=== PATIENT | female | born 1950 | race Caucasian/White ===

== ENCOUNTER → 2018-07-07 | Outpatient (CLI) | payer OTHER ==
[~2018-07-07] MED LIST: ALPR0.25 PO; ATOR10TA82 PO; CALC600T37 PO; CMD/2 PO; FSMD/70 PO; SERT-234 PO; TOPI100T20 PO; VNTHFA/IN INH; WARF1TAB6 PO
--- NOTE | 2018-07-07 13:26 | DIAGNOSTIC IMAGING REPORT ---
CHEST 2 VIEWS ROUTINE CLINICAL HISTORY: 67 years-old Female presenting with preoperative assessment. TECHNIQUE: PA and lateral views of the chest were obtained. COMPARISON: None. FINDINGS: Right subclavian pacer with leads in the right atrium and right ventricular apex. Atherosclerosis of aortic arch. Cardiac silhouette mildly enlarged. Lungs and pleural spaces clear. Osseous structures normal. Cholecystectomy clips noted. IMPRESSION: 1. Mild cardiomegaly. No other convincing evidence of acute cardiopulmonary disease. Electronically signed by: Pablito Nevarez M.D. 07/07/2018 1:25 PM Dictated Date/Time: 07/07/2018 1:23 PM
[2018-07-07 14:38] LABS: BASO % 0.3 %; BASO ABS # 0.02 K/uL (0-0.2); EOS % 4.4 %; EOS ABS # 0.28 K/uL (0-0.5); HEMATOCRIT 38.9 % (37-47); HEMOGLOBIN 12.4 g/dL (12.0-16.0); IG# 0.01 K/uL (0.00-0.02); LYMPH % 29.2 %; LYMPH ABS # 1.85 K/uL (1.2-3.4); MEAN CELL VOLUME 88.8 fL (80-100); MEAN CORPUSCULAR HEMOGLOBIN 28.3 pg (25-34); MEAN CORPUSCULAR HGB CONC 31.9 g/dl (32-36); MONO % 8.4 %; MONO ABS # 0.53 K/uL (0.11-0.59); NEUT % 57.5 %; NEUT ABS # 3.65 K/uL (1.4-6.5); PLATELET COUNT 218 K/uL (130-400); RED CELL DISTRIBUTION WIDTH CV 14.7 % (11.5-14.5); RED CELL DISTRIBUTION WIDTH SD 48.2 fL (36.4-46.3); WHITE BLOOD COUNT 6.34 K/uL (4.8-10.8)
[2018-07-07 14:39] LABS: HEMOGLOBIN A1C 5.8 % (4.5-5.6)
[2018-07-07 14:47] LABS: INR 2.4 (0.9-1.1); PTT PATIENT 40.6 SECONDS (21.0-31.0)
[2018-07-07 14:59] LABS: ALBUMIN 3.4 gm/dl (3.4-5.0); BLOOD UREA NITROGEN 20 mg/dl (7-18); CALCIUM 8.6 mg/dl (8.5-10.1); CARBON DIOXIDE 24 mmol/L (21-32); CREATININE 0.86 mg/dl (0.60-1.20); GLUCOSE 96 mg/dl (70-99); SODIUM 139 mmol/L (136-145)
== END | disposition home or self-care (01) ==
LOC: C.CPL 13:41
DX: Z01.810 Encounter for preprocedural cardiovascular examination (principal); Z01.811 Encounter for preprocedural respiratory examination; Z01.812 Encounter for preprocedural laboratory examination

== ENCOUNTER 2022-04-28 16:32 | Inpatient (IN) ==
--- NOTE | 2022-04-28 16:52 | Emergency Department Note ---
Impression & Plan Deep vein thrombosis, Cellulitis ED Provider Note NAME: DONNIE LUNDBERG AGE: 71 SEX: F : 1950 ARRIVES VIA: Walk-In INFORMANT: Patient, ED PROVIDER(S): Jamie Thomas MD Chief Complaint: Leg pain and redness HPI: Patient presents due to concern for left leg swelling and redness. The patient does have a remote history of DVT in the past does not know whether or not this feels similar. The patient denies any trauma the patient is on long- term blood thinning medications. The patient did notice a spot of redness over the left rehman last evening but it is progressed today to where it involves at least half of the leg between the knee and the ankle. The patient does complain of mild discomfort. The patient is not diabetic. Patient does not think that she suffered any trauma. The patient does state that it is slightly sharp and burning to touch. Patient denies any fevers chills or chest pains. Patient does have chronic shortness of breath. No cough or chest pain. The patient has had nausea but no vomiting. The patient did not take anything for symptoms at home and presented here for further evaluation treatment as she was concerned about the possibility of a blood clot or skin infection. ROS: See HPI for pertinent positives and negatives. A total of 10 systems were reviewed and otherwise negative. Past medical history: See below Surgical history: See below Social history: See below Physical Exam: GENERAL: NAD, wearing glasses, wearing a mask, non-toxic. EYE EXAM: Normal conjunctiva. PERRL, no anisocoria and EOM's grossly intact w/o pain. OROPHARYNX: Moist mucus membranes. Grossly normal dentition. NECK: Supple, no nuchal rigidity, no adenopathy, non-tender. No signs of meningismus. LUNGS: Clear to auscultation. Normal chest wall mechanics. HEART: NSR, no MRG. ABDOMEN: Abdomen soft, non-tender, normo-active bowel sounds, no masses, no rebound or guarding. BACK: No CVA TTP. SKIN: No rashes and no bruising. UPPER EXTREMITIES: Upper extremities are grossly normal. LOWER EXTREMITIES: Mild left greater than right lower extremity swelling with redness from the mid rehman to the ankle, blanching erythema, compartments are soft no crepitus, neurovascular intact distally with good DP pulse and sensation. NEURO EXAM: A&O x3, cranial nerves II-XII grossly intact, normal speech, moves all 4 extremities on command w/o issue. Differential diagnoses: DVT, musculoskeletal, infection, joint effusion, trauma, lymphedema, idiopathic, CHF, as well as other pathologies. Course: Patient was seen and evaluated the bedside. Full history physical exam was performed. Imaging Studies: See Below Cardiac monitoring: An order was placed for continuous cardiac monitoring. The monitor shows a rate of 78 with sinus rhythm. MDM: Patient was seen due to concern for leg redness. Blood work was obtained. The patient was treated with an initial dose of Rocephin and a DVT ultrasound was ordered. Blood work does show a white count of 18 with virtually normal hemoglobin but slight anemia with a hemoglobin 11.7. Platelet count is unremarkable. Patient's INR is therapeutic at 2.2. Kidney function unremarkable. Patient's DVT ultrasound is positive. Given the patient's associated cellulitis and the fact that the patient is therapeutic on her Coumadin with associated acute DVT do think the patient would benefit from admission at this time. I did speak with the on-call hospitalist Dr. Cuello and the patient was admitted to the medicine service. Patient was ordered a small amount of pain medication for her leg discomfort. Past Med/Surg History Medical History Anemia Anxiety Arrhythmia TACHYCARDIA Asthma stable Chronic back pain Deep vein thrombosis 2016 Depression Encounter for pre-operative examination n/a Endometriosis Hearing deficit History of deep vein thrombosis History of pulmonary embolism Hyperlipidemia Memory difficulties Migraine without aura, not intractable, without status migrainosus Osteoarthritis Peptic ulcer disease AT AGE 17 Psychogenic nonepileptic seizure Pulmonary embolism 2016 Seizure Per neurology 01/2018, episodes questionable seizure versus pseudoseizure activity (negative EEG). TIA (transient ischemic attack) Transient ischemic attack (TIA) GREATER THAN 1 YEAR AGO Uterine cancer Surgical History History of adenoidectomy History of cholecystectomy History of ear surgery RIGHT History of herniorrhaphy UMBILICAL History of tonsillectomy History of tooth extraction History of total abdominal hysterectomy and bilateral salpingo-oophorectomy Pacemaker SECONDARY TO SSS; PLACED 1993; REPLACEMENT 1999 Status post right knee replacement Social History Smoking Status: Never smoker Hx Alcohol Use: No Hx Substance Use: No Preferred Language: Citizen Of [place] Communication Ability: Effective Visual Impairment: No Limitations Beliefs That Will Affect Care: Mosque Mosque Beliefs: CONGREGATIONAL marital status: / Current Living Situation: Alone Feels Safe at Home: Yes Assistive Devices: Glasses, Hearing Aid - Left and Walker Allergies Allergies Allergy/AdvReac Type Severity Reaction Status Date / Time No Known Allergies Allergy Verified 04/28/22 19:31 Home Meds Home Medications Medication Instructions Recorded Confirmed sertraline 100 mg tablet (Zoloft) 200 mg PO QAM #0 tab 07/09/19 04/28/22 atorvastatin 10 mg tablet 10 mg PO QAM 07/14/19 04/28/22 levothyroxine 75 mcg capsule 75 mcg PO DAILY 02/28/21 04/28/22 warfarin 2 mg tablet See Rx Instructions PO UD tab 04/11/22 04/28/22 albuterol sulfate 90 mcg/actuation 2 puff INHALATION Q4 PRN 04/28/22 04/28/22 aerosol inhaler (Ventolin HFA) calcium carbonate 600 mg-vitamin 1 tab PO DAILY 04/28/22 04/28/22 D3 10 mcg (400 unit) tablet (Calcium 600 + D(3)) multivitamin-ferrous 1 tab PO DAILY 04/28/22 04/28/22 fumarate-folic acid 18 mg-400 mcg tablet (Complete Multivitamin-Multimineral) Previous Rx's Medication Instructions Recorded divalproex 250 mg tablet,extended 250 mg PO DAILY #30 tab 02/20/22 release 24 hr sumatriptan succinate 25 mg tablet 25 mg PO .COMPLEX PRN #9 tab 02/20/22 Results & Data (ED) Vital Signs Vital Signs - 24 hr 04/28/22 16:41 04/28/22 17:05 04/28/22 18:33 Temperature 36.7 C Temperature Source Temporal Artery Scan Pulse Rate 84 Pulse Rate [Right Finger] 80 Pulse Rhythm [Right Finger] Regular Pulse Strength [Right Finger] Normal Respiratory Rate 18 18 Respiratory Effort / Characteristics Non-Labored Respiratory Depth Normal Respiratory Pattern Regular Blood Pressure 155/77 H Blood Pressure [Right Arm] 148/80 H Blood Pressure Mean 103 Blood Pressure Mean [Right Arm] 102 Blood Pressure Position Sitting Blood Pressure Position [Right Arm] Lying Pulse Oximetry 96 92 Oxygen Delivery Method Room Air Room Air Room Air Sepsis Recent Fever Within 48 Hours No Sepsis New/Unexplained Change in Mental Status No Sepsis Action Taken by Nursing No Action Required Home Medications Current Medication List: was personally reviewed by me Laboratory Data Attestation: I reviewed the patient's lab results. Result diagrams: 04/28/22 17:15 04/28/22 17:15 Lab Results 04/28/22 04/28/22 04/28/22 Range/Units 17:15 17:15 17:15 WBC 18.79 H (4.8-10.8) K/uL RBC 4.45 (4.2-5.4) M/uL Hgb 11.7 L (12.0-16.0) g/dL Hct 36.7 L (37-47) % MCV 82.5 (80-100) fL MCH 26.3 (25-34) pg MCHC 31.9 L (32-36) g/dL RDW Std Deviation 49.7 H (36.4-46.3) fL RDW Coeff of Nick 16.3 H (11.5-14.5) % Plt Count 233 (130-400) K/uL MPV 10.7 H (7.4-10.4) fL Immature Gran % (Auto) 0.4 % Neut % (Auto) 90.1 % Lymph % (Auto) 3.7 % [place] % (Auto) 5.6 % Eos % (Auto) 0.1 % Baso % (Auto) 0.1 % Neut # (Auto) 16.93 H (1.4-6.5) K/uL Lymph # (Auto) 0.70 L (1.2-3.4) K/uL [place] # (Auto) 1.06 H (0.11-0.59) K/uL Eos # (Auto) 0.01 (0-0.5) K/uL Baso # (Auto) 0.02 (0-0.2) K/uL Immature Gran # (Auto) 0.07 H (0.00-0.02) K/uL ESR (0-30) mm/hr PT Cancelled INR Cancelled Sodium 134 L (136-145) mmol/L Potassium 4.3 (3.5-5.1) mmol/L Chloride 98 (98-107) mmol/L Carbon Dioxide 29 (21-32) mmol/L Anion Gap 7 (3-11) BUN 17 (6-23) mg/dl Creatinine 0.85 (0.6-1.2) mg/dl Est Cr Clr Drug Dosing 66.7 ml/min Est GFR ( Amer) 81.0 ml/min Est GFR (Non-Af Amer) 69.9 ml/min BUN/Creatinine Ratio 20.0 (10-20) Glucose 119 H (70-99(Fasting)) mg/dl Calcium 9.6 (8.5-10.1) mg/dl Total Bilirubin 0.8 (0.2-1.0) mg/dl AST 20 (13-39) U/L ALT 12 (7-52) U/L Alkaline Phosphatase 75 (34-104) U/L C-Reactive Protein (0-0.5) mg/dl Total Protein 7.9 (6.0-8.3) gm/dl Albumin 4.2 (3.4-5.0) gm/dl Globulin 3.7 (2.5-4.0) gm/dl Albumin/Globulin Ratio 1.1 (0.9-2) Procalcitonin (0-0.5) ng/ml SARS-CoV-2, RNA, NAAT (NEGATIVE) 04/28/22 04/28/22 04/28/22 Range/Units 17:15 18:01 18:02 WBC (4.8-10.8) K/uL RBC (4.2-5.4) M/uL Hgb (12.0-16.0) g/dL Hct (37-47) % MCV (80-100) fL MCH (25-34) pg MCHC (32-36) g/dL RDW Std Deviation (36.4-46.3) fL RDW Coeff of Nick (11.5-14.5) % Plt Count (130-400) K/uL MPV (7.4-10.4) fL Immature Gran % (Auto) % Neut % (Auto) % Lymph % (Auto) % [place] % (Auto) % Eos % (Auto) % Baso % (Auto) % Neut # (Auto) (1.4-6.5) K/uL Lymph # (Auto) (1.2-3.4) K/uL [place] # (Auto) (0.11-0.59) K/uL Eos # (Auto) (0-0.5) K/uL Baso # (Auto) (0-0.2) K/uL Immature Gran # (Auto) (0.00-0.02) K/uL ESR 70 H (0-30) mm/hr PT 22.1 H INR 2.2 H Sodium (136-145) mmol/L Potassium (3.5-5.1) mmol/L Chloride (98-107) mmol/L Carbon Dioxide (21-32) mmol/L Anion Gap (3-11) BUN (6-23) mg/dl Creatinine (0.6-1.2) mg/dl Est Cr Clr Drug Dosing ml/min Est GFR ( Amer) ml/min Est GFR (Non-Af Amer) ml/min BUN/Creatinine Ratio (10-20) Glucose (70-99(Fasting)) mg/dl Calcium (8.5-10.1) mg/dl Total Bilirubin (0.2-1.0) mg/dl AST (13-39) U/L ALT (7-52) U/L Alkaline Phosphatase (34-104) U/L C-Reactive Protein 4.48 H (0-0.5) mg/dl Total Protein (6.0-8.3) gm/dl Albumin (3.4-5.0) gm/dl Globulin (2.5-4.0) gm/dl Albumin/Globulin Ratio (0.9-2) Procalcitonin (0-0.5) ng/ml SARS-CoV-2, RNA, NAAT (NEGATIVE) 04/28/22 04/28/22 Range/Units 18:02 20:30 WBC (4.8-10.8) K/uL RBC (4.2-5.4) M/uL Hgb (12.0-16.0) g/dL Hct (37-47) % MCV (80-100) fL MCH (25-34) pg MCHC (32-36) g/dL RDW Std Deviation (36.4-46.3) fL RDW Coeff of Nick (11.5-14.5) % Plt Count (130-400) K/uL MPV (7.4-10.4) fL Immature Gran % (Auto) % Neut % (Auto) % Lymph % (Auto) % [place] % (Auto) % Eos % (Auto) % Baso % (Auto) % Neut # (Auto) (1.4-6.5) K/uL Lymph # (Auto) (1.2-3.4) K/uL [place] # (Auto) (0.11-0.59) K/uL Eos # (Auto) (0-0.5) K/uL Baso # (Auto) (0-0.2) K/uL Immature Gran # (Auto) (0.00-0.02) K/uL ESR (0-30) mm/hr PT INR Sodium (136-145) mmol/L Potassium (3.5-5.1) mmol/L Chloride (98-107) mmol/L Carbon Dioxide (21-32) mmol/L Anion Gap (3-11) BUN (6-23) mg/dl Creatinine (0.6-1.2) mg/dl Est Cr Clr Drug Dosing ml/min Est GFR ( Amer) ml/min Est GFR (Non-Af Amer) ml/min BUN/Creatinine Ratio (10-20) Glucose (70-99(Fasting)) mg/dl Calcium (8.5-10.1) mg/dl Total Bilirubin (0.2-1.0) mg/dl AST (13-39) U/L ALT (7-52) U/L Alkaline Phosphatase (34-104) U/L C-Reactive Protein (0-0.5) mg/dl Total Protein (6.0-8.3) gm/dl Albumin (3.4-5.0) gm/dl Globulin (2.5-4.0) gm/dl Albumin/Globulin Ratio (0.9-2) Procalcitonin < 0.05 (0-0.5) ng/ml SARS-CoV-2, RNA, NAAT NEGATIVE (NEGATIVE) Administered Medications Discontinued Medications Ceftriaxone Sodium (Rocephin) 2,000 mg in 70 mls @ 140 mls/hr IV NOW STA Stop: 04/28/22 17:34 Last Infusion: 04/28/22 18:32 Dose: 0 mls/hr Documented by: [id number] Admin: 04/28/22 18:00 Dose: 140 mls/hr Documented by: [id number] Morphine Sulfate (Morphine Sulfate 2 Mg/Ml Carp) 2 mg IV NOW STA Stop: 04/28/22 20:17 Last Admin: 04/28/22 20:50 Dose: 2 mg Documented by: [id number] Imaging Data Radiologist's Impression: Venous Doppler Study 04/28/22 17:05 US venous doppler LE LT CLINICAL HISTORY: redness, swelling and pain COMPARISON: None available at the time of this dictation. TECHNIQUE: Left lower extremity real-time compression venous ultrasound with Color Doppler imaging. Utilizing real-time ultrasonic imaging multiple real time high-resolution ultrasonic images with compression and noncompression maneuvers of the deep venous system in addition to color doppler imaging were performed from the common femoral vein through the proximal calf veins. FINDINGS: There is thrombus present within the superficial femoral and popliteal tibial veins. The common femoral vein is patent. Flow is seen within the calf vessels. Impression: Positive for deep vein is thrombosis within the superficial femoral and popliteal veins. ACT 112: Negative or not required by law. Electronically signed by: Slim Royal M.D. 04/28/2022 7:12 PM Discharge Plan Visit Data Chief Complaint: Leg Injury/Pain Stated Complaint: L LEG SWOLLEN, RED, PAINFUL ED Provider: Jamie Thomas Discharge Problem: Deep vein thrombosis, Cellulitis Forms Stand Alone Forms: My [facility] [employer] Prescriptions Prescriptions: No Action warfarin 2 mg tablet See Rx Instructions PO UD RF: 0 levothyroxine 75 mcg capsule 75 mcg PO DAILY RF: 0 sertraline [Zoloft] 100 mg tablet 200 mg PO QAM Qty: 0 RF: 0 atorvastatin 10 mg tablet 10 mg PO QAM RF: 0 divalproex 250 mg tablet extended release 24 hr 250 mg PO DAILY Qty: 30 RF: 11 sumatriptan succinate 25 mg tablet 25 mg PO .COMPLEX PRN (Reason: migraine headache) Qty: 9 RF: 5 albuterol sulfate [Ventolin HFA] 90 mcg/actuation HFA aerosol inhaler 2 puff INHALATION Q4 PRN (Reason: Wheezing) RF: 0 Complete Multivitamin-Mineral 18-400 mg-mcg Tablet 1 tab PO DAILY RF: 0 calcium carbonate-vitamin D3 [Calcium 600 + D(3)] 600 mg-10 mcg (400 unit) Ta blet 1 tab PO DAILY RF: 0 Referrals Referrals: Giovanna Lopes CRNP [Primary Care Provider] -
[2022-04-28] MEDS ORDERED: cefTRIAXone SODIUM 2,000 MG/70 ML BAG IV STA (17:05)
[2022-04-28 17:35] LABS: Basophils # (auto) 0.02 K/uL (0-0.2); Basophils % (auto) 0.1 %; Eosinophils # (auto) 0.01 K/uL (0-0.5); Eosinophils % (auto) 0.1 %; Hematocrit (blood only) 36.7 % (37-47); Hemoglobin 11.7 g/dL (12.0-16.0); Immature Granulocytes # (auto) 0.07 K/uL (0.00-0.02); Immature Granulocytes % (auto) 0.4 %; Lymphocytes % (auto) 3.7 %; Mean Corpuscular Hemoglobin 26.3 pg (25-34); Mean Corpuscular Hgb Conc 31.9 g/dL (32-36); Mean Corpuscular Volume 82.5 fL (80-100); Mean Platelet Volume 10.7 fL (7.4-10.4); Monocytes # (auto) 1.06 K/uL (0.11-0.59); Monocytes % (auto) 5.6 %; Neutrophils # (auto) 16.93 K/uL (1.4-6.5); Neutrophils % (auto) 90.1 %; Platelet Count 233 K/uL (130-400); RDW Coefficient of Variation 16.3 % (11.5-14.5); RDW Standard Deviation 49.7 fL (36.4-46.3); Red Blood Count 4.45 M/uL (4.2-5.4); White Blood Count 18.79 K/uL (4.8-10.8)
[2022-04-28 17:51] LABS: Albumin Globulin Ratio 1.1 (0.9-2); Albumin Level 4.2 gm/dl (3.4-5.0); Bilirubin,Total 0.8 mg/dl (0.2-1.0); Calcium 9.6 mg/dl (8.5-10.1); Creatinine Clr Calc Pharmacy 66.7 ml/min; Est GFR (Non-African American) 69.9 ml/min; Globulin 3.7 gm/dl (2.5-4.0); Potassium 4.3 mmol/L (3.5-5.1); Total Protein 7.9 gm/dl (6.0-8.3)
[2022-04-28 18:21] LABS: INR 2.2 (0.9-1.1); Prothrombin Time 22.1 Seconds (9.0-12.0)
--- NOTE | 2022-04-28 19:14 | Ultrasound Report ---
US venous doppler LE LT CLINICAL HISTORY: redness, swelling and pain COMPARISON: None available at the time of this dictation. TECHNIQUE: Left lower extremity real-time compression venous ultrasound with Color Doppler imaging. Utilizing real-time ultrasonic imaging multiple real time high-resolution ultrasonic images with comp ression and noncompression maneuvers of the deep venous system in addition to color doppler imaging w ere performed from the common femoral vein through the proximal calf veins. FINDINGS: There is thrombus present within the superficial femoral and popliteal tibial veins. The common femor al vein is patent. Flow is seen within the calf vessels. Impression: Positive for deep vein is thrombosis within the superficial femoral and popliteal veins. ACT 112: Negative or not required by law. Electronically signed by: Slim Royal M.D. 04/28/2022 7:12 PM
--- NOTE | 2022-04-28 19:35 | History & Physical Report ---
Date of Service April 28, 2022 Assessment & Plan (1) Thrombophlebitis: Plan: - Suspect thrombophlebitis due to a chronic DVT. - WBC 18.79, left shift. ESR, CRP, elevated and procalcitonin < 0.05. - Started on ceftriaxone, blood cultures sent. - LRs 150 cc/hr. (2) Deep vein thrombosis: Plan: - Doppler study today--> Positive for deep vein thrombosis within the superficial femoral and popliteal veins. Reading was not compared to previous studies, specifically from 2019 where this clot was also seen, reading is similar to this evening's. Unsure if this is a acute on chronic DVT or simply the same, unchanged nonocclusive clot that has previously been seen. Have sent study to [facility] for another read with comparison to previous studies. - Continue on warfarin for now as prescribed (4 mg on , 2 mg remainder of days). If this is chronic clot, no change to plan. If new clot, should probably be placed on Eliquis. - INR 2.2 today, repeat in AM. (3) Psychogenic nonepileptic seizure: Plan: - Continue Depakote 250 mg daily. (4) Migraine without aura, not intractable, without status migrainosus: Plan: - Continue sumatriptan as needed. (5) Hyperlipidemia: Plan: - Continue atorvastatin 10 mg daily. (6) Depression: Plan: - Continue sertraline 200 mg daily. (7) TIA (transient ischemic attack): Plan: - History of multiple, no CVA. - No acute issues. (8) Pacemaker: Plan: - d/t sinus node dysfunction, NOT MRI compatible. Plan: - Admit to med/tele. - SCDs, Coumadin for VTE ppx. - Full Code. History of Present Illness Chief Complaint: Lower left extremity swelling, pain x1 day Primary Care Provider: CATERINA Hicks Celestina Ferreira is a 71 y/o female with PMH of DVT/PE currently on Coumadin, TIA, psychogenic seizures, hyperlipidemia, anxiety, depression, and migraines who presents today with pain and swelling in her leg. States last night on the medial aspect of her ankle, she had a small round spot of redness that has since developed into circumferential redness from her ankle to mid calf. Her leg has become more swollen and painful since then, making it difficult for her to ambulate, therefore she has been using a wheelchair to avoid putting pressure on the foot. No fever or chills, she has had no recent injuries to the extremity or animal bites that she is aware of, no shortness, of breath, chest pain/tightness, or palpitations. No pets at home. Does have a history of a DVT and PE in 2015, as well as multiple TIAs. She has been on warfarin for many years now since her initial PE in 2014, current dose is 4 mg on , 2 mg all other days. She denies missing any doses recently. In ED, she is hypertensive 148/80, otherwise VS wnl and stable. Labs largely unremarkable, significant for WBC 18.79, CRP 4.48, ESR 70, PCT < 0.05. Hgb 11.7, PT 22.1, INR 2.2 (goal 2.0 - 3.0). Venous Doppler positive for deep vein is thrombosis within the superficial femoral and popliteal veins. Allergies Allergy/AdvReac Type Severity Reaction Status Date / Time No Known Allergies Allergy Verified 04/28/22 19:31 Home Medications Medication Instructions Recorded Confirmed Type sertraline 100 mg tablet (Zoloft) 200 mg PO QAM #0 tab 07/09/19 04/28/22 History atorvastatin 10 mg tablet 10 mg PO QAM 07/14/19 04/28/22 History levothyroxine 75 mcg capsule 75 mcg PO DAILY 02/28/21 04/28/22 History divalproex 250 mg tablet,extended 250 mg PO DAILY #30 tab 02/20/22 04/28/22 Rx release 24 hr sumatriptan succinate 25 mg tablet 25 mg PO .COMPLEX PRN #9 tab 02/20/22 04/28/22 Rx warfarin 2 mg tablet See Rx Instructions PO UD tab 04/11/22 04/28/22 History albuterol sulfate 90 mcg/actuation 2 puff INHALATION Q4 PRN 04/28/22 04/28/22 History aerosol inhaler (Ventolin HFA) calcium carbonate 600 mg-vitamin 1 tab PO DAILY 04/28/22 04/28/22 History D3 10 mcg (400 unit) tablet (Calcium 600 + D(3)) multivitamin-ferrous 1 tab PO DAILY 04/28/22 04/28/22 History fumarate-folic acid 18 mg-400 mcg tablet (Complete Multivitamin-Multimineral) Past Med/Surg History Medical History Anemia Anxiety Arrhythmia TACHYCARDIA Asthma stable Chronic back pain Deep vein thrombosis 2016 Depression Encounter for pre-operative examination n/a Endometriosis Hearing deficit History of deep vein thrombosis History of pulmonary embolism Hyperlipidemia Memory difficulties Migraine without aura, not intractable, without status migrainosus Osteoarthritis Peptic ulcer disease AT AGE 17 Psychogenic nonepileptic seizure Pulmonary embolism 2016 Seizure Per neurology 01/2018, episodes questionable seizure versus pseudoseizure activity (negative EEG). TIA (transient ischemic attack) Transient ischemic attack (TIA) GREATER THAN 1 YEAR AGO Uterine cancer Surgical History History of adenoidectomy History of cholecystectomy History of ear surgery RIGHT History of herniorrhaphy UMBILICAL History of tonsillectomy History of tooth extraction History of total abdominal hysterectomy and bilateral salpingo-oophorectomy Pacemaker SECONDARY TO SSS; PLACED 1993; REPLACEMENT 1999 Status post right knee replacement Social History Smoking Status: Never smoker Hx Alcohol Use: No Hx Substance Use: No Preferred Language: Afghan Communication Ability: Effective Visual Impairment: No Limitations Beliefs That Will Affect Care: Lutheran Lutheran Beliefs: JUDAISM marital status: / Current Living Situation: Alone Feels Safe at Home: Yes Assistive Devices: Glasses, Hearing Aid - Left and Walker Review of Systems Review of Systems: Constitutional: No fever/chills, weakness, fatigue, myalgias, anorexia, night sweats Eyes: No diplopia, no worsening or blurred vision ENT: normal hearing, no trouble swallowing Respiratory: No cough, sputum, dyspnea at rest or on exertion Cardiovascular: No chest pain, tightness or palpitations Abdomen: No pain, nausea, vomiting, diarrhea or constipation : Denies dysuria, hematuria, increased urgency/frequency, urinary retention Musculoskeletal: Left lower extremity redness, pain, difficulty ambulating x1 day Neurologic: No weakness, numbness/tingling, or balance problems Psychiatric: No anxiety or depression Skin: Left lower extremity redness Physical Exam Physical Exam: General: awake, alert, no apparent distress Head: Normocephalic, atraumatic ENT: PERRL, EOMI, no pharyngeal exudate, mucous membranes moist Chest: Clear to auscultation, on room air, no adventitious breath sounds Cardiac: Regular rate and rhythm, no murmur, no JVD, normal peripheral pulses, good capillary refill Abdominal: NABS x 4 quadrants, soft, nontender to palpation, no rebound, guarding or tenderness Extremities: >r lower extremity edema, LLE with erythema from ankle to mid calf; pulses intact bilaterally Psych: Normal mood and affect Neuro: AAO x 3, strength intact bilaterally and rated 5/5, no motor deficits, speech is clear, no peripheral sensory deficits Skin: LLE is erythematous from ankle to mid calf, warm. Results & Data Results & Data ([facility]) Vital Signs (Past 12 Hours) Vital Signs Temp Pulse Pulse Resp BP BP Pulse Ox 04/28/22 18:33 80 18 148/80 H 92 04/28/22 16:41 36.7 C 84 18 155/77 H 96 Laboratory Results Abnormal lab results 04/28/22 04/28/22 04/28/22 Range/Units 17:15 17:15 18:01 WBC 18.79 H (4.8-10.8) K/uL Hgb 11.7 L (12.0-16.0) g/dL Hct 36.7 L (37-47) % MCHC 31.9 L (32-36) g/dL RDW Std Deviation 49.7 H (36.4-46.3) fL RDW Coeff of Nick 16.3 H (11.5-14.5) % MPV 10.7 H (7.4-10.4) fL Neut # (Auto) 16.93 H (1.4-6.5) K/uL Lymph # (Auto) 0.70 L (1.2-3.4) K/uL [place] # (Auto) 1.06 H (0.11-0.59) K/uL Immature Gran # (Auto) 0.07 H (0.00-0.02) K/uL PT 22.1 H (9.0-12.0) Seconds INR 2.2 H (0.9-1.1) Sodium 134 L (136-145) mmol/L Glucose 119 H (70-99(Fasting)) mg/dl Diagnostic Findings Venous Doppler Study 04/28/22 17:05 US venous doppler LE LT CLINICAL HISTORY: redness, swelling and pain COMPARISON: None available at the time of this dictation. TECHNIQUE: Left lower extremity real-time compression venous ultrasound with Color Doppler imaging. Utilizing real-time ultrasonic imaging multiple real time high-resolution ultrasonic images with compression and noncompression maneuvers of the deep venous system in addition to color doppler imaging were performed from the common femoral vein through the proximal calf veins. FINDINGS: There is thrombus present within the superficial femoral and popliteal tibial veins. The common femoral vein is patent. Flow is seen within the calf vessels. Impression: Positive for deep vein is thrombosis within the superficial femoral and popliteal veins. ACT 112: Negative or not required by law. Electronically signed by: Slim Royal M.D. 04/28/2022 7:12 PM Code Status & VTE Plan Code Status Full Code. Supervising Physician Co-Signing Physician Notes Attending addendum: I have physically seen this patient, have supervised the COLLEEN's activities, and agree with the H&P unless as otherwise noted. Assessment and Plan: Thrombophlebitis/chronic DVT left lower extremity- Continue warfarin, with INR therapeutic at 2.2 To previous Doppler tests have shown similar interpretation Have asked radiology to compare present study to previous studies to see if this continues to be a chronic DVT, as in that case, patient may need to be changed to a DOAC Ceftriaxone 1 g IV daily, and follow clinical exam Psychogenic nonepileptic seizure- Continue Depakote Remaining orders and notations as noted PG Care Time/CCT Total # of Minutes Spent Total Time Spent with Patient: Total time spent is greater than 50% in coordination of care (as documented) at patient's floor/unit and/or counseling patient: Coding Level of Care Code 23811 Initial Inpt Care Lvl 3 Diagnoses Deep vein thrombosis I82.409 Psychogenic nonepileptic seizure F44.5 Migraine without aura, not intractable, without status migrainosus G43.009 Hyperlipidemia E78.5 Depression F32.9 TIA (transient ischemic attack) G45.9 Pacemaker Z95.0 Thrombophlebitis I80.9
[2022-04-28] MEDS ORDERED: MoRPHine SULFATE 2 MG/ML CARP IV STA (20:16)
[2022-04-28] MEDS ORDERED: SUMAtriptan succinate 25 MG TAB PO PRN (23:09)
[2022-04-28] MEDS ORDERED: ACETAMINOPHEN 325 MG TAB PO PRN (23:09)
[2022-04-28] MEDS ORDERED: ONDANSETRON INJ 2 MG/ML 2 ML VIAL IV PRN (23:09)
[2022-04-28] MEDS ORDERED: ALBUTEROL HFA 8 GM INHALER INH PRN (23:09)
[2022-04-28] MEDS ORDERED: POLYETHYLENE (MIRALAX) 17 GM PACK PO PRN (23:09)
[2022-04-29] MEDS: LACTATED RINGER'S 1,000 ML IV SCH ×2 (00:30→08:09)
[2022-04-29] MEDS: WARFARIN SOD 2 MG TAB PO SCH ×2 (02:00→17:19)
[2022-04-29 05:45] LABS: Basophils # (auto) 0.01 K/uL (0-0.2); Eosinophils # (auto) 0.01 K/uL (0-0.5); Hematocrit (blood only) 33.8 % (37-47); Hemoglobin 10.8 g/dL (12.0-16.0); Immature Granulocytes # (auto) 0.07 K/uL (0.00-0.02); Immature Granulocytes % (auto) 0.3 %; Lymphocytes # (auto) 1.25 K/uL (1.2-3.4); Lymphocytes % (auto) 5.8 %; Mean Corpuscular Hemoglobin 26.3 pg (25-34); Mean Corpuscular Volume 82.2 fL (80-100); Mean Platelet Volume 10.5 fL (7.4-10.4); Monocytes % (auto) 7.4 %; Neutrophils # (auto) 18.56 K/uL (1.4-6.5); Neutrophils % (auto) 86.5 %; Platelet Count 212 K/uL (130-400); RDW Coefficient of Variation 16.3 % (11.5-14.5); RDW Standard Deviation 49.6 fL (36.4-46.3); Red Blood Count 4.11 M/uL (4.2-5.4)
[2022-04-29 06:05] LABS: INR 2.2 (0.9-1.1); Prothrombin Time 22.4 Seconds (9.0-12.0)
[2022-04-29 06:06] LABS: BUN Creatinine Ratio 15.9 (10-20); Calcium 9.1 mg/dl (8.5-10.1); Creatinine Clr Calc Pharmacy 64.5 ml/min; Est GFR (African American) 77.7 ml/min; Potassium 4.3 mmol/L (3.5-5.1)
[2022-04-29] MEDS: cefTRIAXone SODIUM 2,000 MG in DEXTROSE 5% 50 ML IV SCH (10:04)
[2022-04-29] MEDS: CEROVITE ADV FORMULA TAB PO SCH (10:05)
[2022-04-29] MEDS: DIVALPROEX EXTENDED RELEASE 250 MG TABCR PO SCH (10:05)
[2022-04-29] MEDS: ATORVASTATIN 10 MG TAB PO SCH (10:13)
[2022-04-29] MEDS: SERTRALINE HCL 100 MG TABLET PO SCH (10:14)
[2022-04-29] MEDS: CALCIUM 600MG + VIT D 400 IU TAB PO SCH (10:14)
[2022-04-29] MEDS: LEVOTHYROXINE SODIUM 75 MCG TABLET PO SCH (10:16)
--- NOTE | 2022-04-29 11:43 | Electrocardiogram Report ---
Test Reason : Blood Pressure : / mmHG Vent. Rate : 069 BPM Atrial Rate : 069 BPM P-R Int : 206 ms QRS Dur : 094 ms QT Int : 422 ms P-R-T Axes : 062 048 082 degrees QTc Int : 452 ms Normal sinus rhythm Nonspecific ST and T wave abnormality Abnormal ECG When compared with ECG of 14-OCT-2018 15:28, No significant change was found Confirmed by Damian Valera ([id number]) on 04/29/2022 11:43:22 AM Referred By: REFERRED SELF Confirmed By:Sloan Valera
[2022-04-29] MEDS ORDERED: VANCOMYCIN CONSULT ACTIVE PRN (11:53)
--- NOTE | 2022-04-29 11:55 | Hospitalist Progress Note ---
Date of Service April 29, 2022 Assessment & Plan (1) Left leg cellulitis: Plan: Cont rocephin. Add vancomycin. Serial exams. Repeat CBC am. No new DVT seen on doppler - thus, VTE is not contributing to her left leg issues. (2) Acute on chronic diastolic CHF (congestive heart failure): Plan: significant decompensation today. stop IVF. lasix 20mg IV x 1 given - copious diuresis with such (2+ Liters). repeat lasix in am. consult [facility]ology, Dr Weston Tariq, in am. patient with h/o "asthma" - perhaps chronic asthma symptoms are all cardiac in nature. (3) Valvular heart disease: Plan: moderate on echo today. moderate-severe MS on echo along with MR. consult cardiology - Dr Weston Tariq, [facility]. (4) Pulmonary hypertension: Plan: severe on echo. PA pressures should improve some with diuresis. some of her high PA pressure could be from undiagnosed/untreated CRUZ. some of her high PA pressure could be from valvular disease. some could be from prior PEs. will need formal 2-step O2 test or ABG before discharge. (5) Pacemaker: Plan: Placed 2nd to sinus node dysfunction, NOT MRI compatible. Was having remote checks for the device via the [facility] system. Will request an in-house pacer interrogation while hospitalized. (6) Deep vein thrombosis: Plan: I spoke with radiology today. The E superficial femoral and popliteal vein DVTs appear chronic and VERY SIMILAR to her 2020 doppler. This is likely residual DVT / chronic DVT rather than acute DVT. no need to change coumadin at this time. cont coumadin -- 4 mg on , 2 mg remainder of days. daily INR while here. (7) Psychogenic nonepileptic seizure: Plan: Continue Depakote 250 mg daily. Follows with [facility] for such. Should check a depakote level while here. (8) Migraine without aura, not intractable, without status migrainosus: Plan: Continue sumatriptan as needed. No headache at this time. (9) Hyperlipidemia: Plan: Continue atorvastatin 10 mg daily. (10) Depression: Plan: Continue sertraline 200 mg daily. Tongue movements - tardive dyskinesia from prior medications?? (11) TIA (transient ischemic attack): Plan: History of multiple TIA events cont coumadin for secondary prevention cont statin (12) Morbid obesity with BMI of 45.0-49.9, adult: Plan: BMI 45 (13) Hyponatremia: Plan: suspect 2nd to volume overload should improve with diuresis BMP am (14) Snoring: Plan: needs sleep study in the future (15) DVT prophylaxis: Plan: coumadin daily INR Plan: daughter extensively updated by phone total time today - 65 minutes; 20 min spent updating daughter; 20 min at bedside; rest with care coordinating, interpreting data, complex care management, reviewing old records Admission and Anticipated Discharge Date Admission Date: April 28, 2022 Subjective patient is a poor historian she also is hearing impaired which makes communication w/ her very challenging she c/o mild discomfort in the left distal leg her main complaint is dyspnea at one point the staff placed her flat in bed to slide her up in the bed and she was quite orthopneic she has been "short of breath for a long time" minimal activities leads to dyspnea she always has LE edema I spoke with pt's daughter by phone late in the evening she stated she has noted her mother to be short of breath for over a year her LE edema has been present a long time as well when I asked her daughter who she follows with for cardiology she said "over on the [place]" but she wasn't sure the last time she went there patient previously had much of her care in the [place] area also, when she had her PEs many years ago, she was hospitalized at [facility] I corresponded with Dr Weston Tariq from [facility] - he reports, based on records, that she hasn't been physically seen in the clinic there since 2019 she has a pacer, and has been having remote download checks for several years Review of Systems Review of Systems: gen - no fevers, no chills cv - orthopnea, but no cp pulm - cough, dyspnea, LEON GI - no pain Physical Exam Physical Exam: gen - obese, dyspneic, tachypneic; I removed her O2 during the visit - O2 sats promptly dropped to 90% within a few seconds neck - JVD to the jaw mouth - large tongue; tardive dyskinesia? heart - 2/6 systolic murmur LLSB, RRR, s1 s2 lungs - diffuse b/l basilar rales; mild end-exp wheezes; tachypnea abd - soft NT ND BS+ skin - warm erythema extending from mid-calf down to just above the left foot c/w cellulitis; 1-2+ edema b/l legs; pulses 2+ b/l psych - poor historian, awake, alert Results & Data Results & Data ([facility]) Vital Signs (Past 12 Hours) Vital Signs Temp Pulse Pulse Resp BP BP Pulse Ox 04/29/22 07:07 37.3 C 74 22 142/95 H 97 04/29/22 02:45 74 19 119/63 99 04/29/22 00:30 68 25 H 96 04/29/22 00:29 74 17 87/64 L 97 04/29/22 00:20 72 21 97 04/29/22 00:10 75 23 98 04/29/22 00:00 81 16 89 L Laboratory Results Laboratory Results - last 24 hr 04/28/22 04/28/22 04/28/22 17:15 17:15 17:15 WBC 18.79 H RBC 4.45 Hgb 11.7 L Hct 36.7 L MCV 82.5 MCH 26.3 MCHC 31.9 L RDW Std Deviation 49.7 H RDW Coeff of Nick 16.3 H Plt Count 233 MPV 10.7 H Immature Gran % (Auto) 0.4 Neut % (Auto) 90.1 Lymph % (Auto) 3.7 [place] % (Auto) 5.6 Eos % (Auto) 0.1 Baso % (Auto) 0.1 Neut # (Auto) 16.93 H Lymph # (Auto) 0.70 L [place] # (Auto) 1.06 H Eos # (Auto) 0.01 Baso # (Auto) 0.02 Immature Gran # (Auto) 0.07 H ESR PT Cancelled INR Cancelled Sodium 134 L Potassium 4.3 Chloride 98 Carbon Dioxide 29 Anion Gap 7 BUN 17 Creatinine 0.85 Est Cr Clr Drug Dosing 66.7 Est GFR ( Amer) 81.0 Est GFR (Non-Af Amer) 69.9 BUN/Creatinine Ratio 20.0 Glucose 119 H Calcium 9.6 Total Bilirubin 0.8 AST 20 ALT 12 Alkaline Phosphatase 75 C-Reactive Protein Total Protein 7.9 Albumin 4.2 Globulin 3.7 Albumin/Globulin Ratio 1.1 Procalcitonin Nasal Screen MRSA (PCR) SARS-CoV-2, RNA, NAAT 04/28/22 04/28/22 04/28/22 17:15 18:01 18:02 WBC RBC Hgb Hct MCV MCH MCHC RDW Std Deviation RDW Coeff of Nick Plt Count MPV Immature Gran % (Auto) Neut % (Auto) Lymph % (Auto) [place] % (Auto) Eos % (Auto) Baso % (Auto) Neut # (Auto) Lymph # (Auto) [place] # (Auto) Eos # (Auto) Baso # (Auto) Immature Gran # (Auto) ESR 70 H PT 22.1 H INR 2.2 H Sodium Potassium Chloride Carbon Dioxide Anion Gap BUN Creatinine Est Cr Clr Drug Dosing Est GFR ( Amer) Est GFR (Non-Af Amer) BUN/Creatinine Ratio Glucose Calcium Total Bilirubin AST ALT Alkaline Phosphatase C-Reactive Protein 4.48 H Total Protein Albumin Globulin Albumin/Globulin Ratio Procalcitonin Nasal Screen MRSA (PCR) SARS-CoV-2, RNA, NAAT 04/28/22 04/28/22 04/29/22 18:02 20:30 05:24 WBC 21.50 H RBC 4.11 L Hgb 10.8 L Hct 33.8 L MCV 82.2 MCH 26.3 MCHC 32.0 RDW Std Deviation 49.6 H RDW Coeff of Nick 16.3 H Plt Count 212 MPV 10.5 H Immature Gran % (Auto) 0.3 Neut % (Auto) 86.5 Lymph % (Auto) 5.8 [place] % (Auto) 7.4 Eos % (Auto) 0.0 Baso % (Auto) 0.0 Neut # (Auto) 18.56 H Lymph # (Auto) 1.25 [place] # (Auto) 1.60 H Eos # (Auto) 0.01 Baso # (Auto) 0.01 Immature Gran # (Auto) 0.07 H ESR PT INR Sodium Potassium Chloride Carbon Dioxide Anion Gap BUN Creatinine Est Cr Clr Drug Dosing Est GFR ( Amer) Est GFR (Non-Af Amer) BUN/Creatinine Ratio Glucose Calcium Total Bilirubin AST ALT Alkaline Phosphatase C-Reactive Protein Total Protein Albumin Globulin Albumin/Globulin Ratio Procalcitonin < 0.05 Nasal Screen MRSA (PCR) SARS-CoV-2, RNA, NAAT NEGATIVE 04/29/22 04/29/22 04/29/22 05:24 05:24 09:00 WBC RBC Hgb Hct MCV MCH MCHC RDW Std Deviation RDW Coeff of Nick Plt Count MPV Immature Gran % (Auto) Neut % (Auto) Lymph % (Auto) [place] % (Auto) Eos % (Auto) Baso % (Auto) Neut # (Auto) Lymph # (Auto) [place] # (Auto) Eos # (Auto) Baso # (Auto) Immature Gran # (Auto) ESR PT 22.4 H INR 2.2 H Sodium 133 L Potassium 4.3 Chloride 98 Carbon Dioxide 30 Anion Gap 5 BUN 14 Creatinine 0.88 Est Cr Clr Drug Dosing 64.5 Est GFR ( Amer) 77.7 Est GFR (Non-Af Amer) 67.0 BUN/Creatinine Ratio 15.9 Glucose 104 H Calcium 9.1 Total Bilirubin AST ALT Alkaline Phosphatase C-Reactive Protein Total Protein Albumin Globulin Albumin/Globulin Ratio Procalcitonin Nasal Screen MRSA (PCR) Negative SARS-CoV-2, RNA, NAAT PG Care Time/CCT Total # of Minutes Spent Total Time Spent with Patient: Total time spent is greater than 50% in coordination of care (as documented) at patient's floor/unit and/or counseling patient: Prolonged Care Time Prolonged Care Time: Yes Total Prolonged Care Time: 65 Coding Level of Care Code 07497 Subseq Hosp Care Lvl 3 (25 - SIGNIFICANT, SEPARATELY IDENTIFIABLE ) Diagnoses Deep vein thrombosis I82.432 Affected thrombotic vein of extremity: popliteal Chronicity: acute DVT location: lower extremity Laterality: left Psychogenic nonepileptic seizure F44.5 Migraine without aura, not intractable, without status migrainosus G43.009 Hyperlipidemia E78.5 Depression F32.9 TIA (transient ischemic attack) G45.9 Pacemaker Z95.0 Left leg cellulitis L03.116 Acute on chronic diastolic CHF (congestive heart failure) I50.33 Valvular heart disease I38 Pulmonary hypertension I27.20 Morbid obesity with BMI of 45.0-49.9, adult E66.01; Z68.42 DVT prophylaxis Z29.9 Hyponatremia E87.1 Snoring R06.83 Additional Codes Prolonged Care Time - Prolonged Care Time: Yes ([id number]) Time Spent (min) 65 (1) Deep vein thrombosis Affected thrombotic vein of extremity: popliteal Chronicity: acute DVT location: lower extremity Laterality: left Qualified Code(s): I82.432 - Acute embolism and thrombosis of left popliteal vein
[2022-04-29] MEDS ORDERED: FUROSEMIDE INJ 20 MG/2 ML VIAL IV ONE (12:00)
--- NOTE | 2022-04-29 12:13 | Pharmacy Report ---
Pharmacy PK ABX Note - Date of Service April 29, 2022 - Assessment and Plan Assessment 71 year old F receiving Vancomycin and Ceftriaxone for treatment of LLE cellulitis. * PMHx significant for obesity and seizure disorder. * Day #2 of Ceftriaxone. Vancomycin added today. * Afebrile w/ worsening leukocytosis (21.5k). Renal fxn stable. ESR/CRP both elevated. PCT negative. * Blood cultures pending. MRSA nasal swab was negative. Plan Vancomycin * Loading dose: 2000 mg IV x 1 * Maintenance dose: 750 mg IV every 12 hours * Regimen is predicted to achieve target AUC/JR of 400-600 mg/L.hr * Trough level ordered for: 05/01/22 Ceftriaxone * 2000 mg IV every 24 hours remains appropriate Pharmacy will continue to follow and will adjust dose/frequency as necessary. Thank you. Pharmacy has transitioned to AUC monitoring for vancomycin. AUC/JR is the preferred PK/PD target and is associated with decreased risk of nephrotoxicity compared to traditional trough targets.
[2022-04-29] MEDS ORDERED: VANCOMYCIN HCL 2,000 MG in SODIUM CHLORIDE 0.9% 500 ML IV ONE (12:15)
--- NOTE | 2022-04-29 13:02 | XRay Report ---
XR chest 1V portable CLINICAL HISTORY: Shortness of breath.. COMPARISON STUDY: 10/14/2018 TECHNIQUE: 1 view of the chest FINDINGS: Single frontal view of the chest demonstrates the heart to be accentuated due to decreased inspirator y effort. There is a decreased inspiratory effort with elevation of the hemidiaphragms and crowding o f the bronchovascular markings at the lung bases and centrally. The lungs are clear of alveolar opaci ties. There is no evidence for pleural effusion. There is no evidence for vascular congestion. There is no acute osseous pathology. IMPRESSION: 1. There is a decreased inspiratory effort with otherwise no acute chest disease. ACT 112: Negative or not required by law. Electronically signed by: Slim Royal M.D. 04/29/2022 1:00 PM
[2022-04-29] MEDS: MAGNESIUM OXIDE 400 MG TAB PO SCH (13:29)
--- NOTE | 2022-04-29 18:35 | XCELERA ---
[id number] \\[id number]
[2022-04-30] MEDS: VANCOMYCIN HCL 750 MG in SODIUM CHLORIDE 0.9% 250 ML IV SCH ×2 (02:00→14:55)
[2022-04-30] MEDS: LEVOTHYROXINE SODIUM 75 MCG TABLET PO SCH (05:24)
[2022-04-30 05:55] LABS: Hematocrit (blood only) 31.5 % (37-47); Mean Corpuscular Hemoglobin 26.8 pg (25-34); Mean Corpuscular Hgb Conc 31.7 g/dL (32-36); Mean Corpuscular Volume 84.5 fL (80-100); Mean Platelet Volume 10.4 fL (7.4-10.4); Platelet Count 179 K/uL (130-400); RDW Coefficient of Variation 16.3 % (11.5-14.5); RDW Standard Deviation 50.4 fL (36.4-46.3); Red Blood Count 3.73 M/uL (4.2-5.4)
[2022-04-30 06:07] LABS: INR 1.9 (0.9-1.1); Prothrombin Time 19.5 Seconds (9.0-12.0)
[2022-04-30 06:21] LABS: BUN Creatinine Ratio 19.5 (10-20); Calcium 8.6 mg/dl (8.5-10.1); Creatinine Clr Calc Pharmacy 65.9 ml/min; Est GFR (African American) 78.8 ml/min; Magnesium 1.8 mg/dl (1.7-2.4); Potassium 3.9 mmol/L (3.5-5.1)
[2022-04-30] MEDS ORDERED: FUROSEMIDE INJ 20 MG/2 ML VIAL IV ONE ×2 (08:00→19:38)
[2022-04-30] MEDS: cefTRIAXone SODIUM 2,000 MG in DEXTROSE 5% 50 ML IV SCH (08:13)
[2022-04-30] MEDS: SERTRALINE HCL 100 MG TABLET PO SCH (08:13)
[2022-04-30] MEDS: CEROVITE ADV FORMULA TAB PO SCH (08:13)
[2022-04-30] MEDS: MAGNESIUM OXIDE 400 MG TAB PO SCH (08:14)
[2022-04-30] MEDS: CALCIUM 600MG + VIT D 400 IU TAB PO SCH (08:14)
[2022-04-30] MEDS: DIVALPROEX EXTENDED RELEASE 250 MG TABCR PO SCH (08:14)
--- NOTE | 2022-04-30 08:37 | Cardiology Consultation ---
Date of Consultation April 30, 2022 Assessment & Plan (1) Acute on chronic diastolic CHF (congestive heart failure): Impression: 1. Permanent pacemaker implantation in 1993 secondary to sinus node dysfunction; generator change in 1999, and generator change in 2010. 2. Moderate to severe mitral valve stenosis and moderate regurgitations 3. Moderate aortic stenosis 4. PA pressues >60 mmHg 5. HLD 6. 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 Ferreira is responding to diuresis and should continue with IV furosemide. She has been sob for some time - months to years - and so likely has been in some level of heart failure for quite a while. She does however also have a significant smoking history and COPD may be playing a role in her dyspnea. How much of her valve/PA pressure abnormalities are being exacerbated by her fluid status is unclear until we can further diurese her. Her echo shows severe pulmonary hypertension which may improve with diuresis but she will also need a sleep study. Her pacemaker was last uploaded 09/2021 and was functioning normally, pacing atrially 11% and ventricularly 1%. She has a pacemaker interrogation ordered while inpatient per the hospitalists. Her EKG was reviewed and demonstrates NSR. There have been no significant arrhythmia or ectopy on telemetry. She is having occasional PVCs. History of Present Illness Attending Physician: Saritha Gastelum MD History of Present Illness Ms. Ferreira presented to the [facility] 04/28 due to swelling and pain of her left ankle. She was subsequently found to have chronic DVTs and is being treated for cellulitis. Her chronic diastolic CHF acutely decompensated yesterday and she was started on diuresis. She is diuresing well. In talking with Celestina, she notes she has been increasingly sob over the last year or so. She gets winded doing chores around the house though she will get through them. No chest discomfort. No lightheadedness. No significant edema other than her left leg in association with her cellulitis. SR on the monitor, no events. PMHx: dual chamber pacemaker secondary to sinus node dysfunction, DVT/PE currently on Coumadin, TIA, psychogenic seizures, hyperlipidemia, anxiety, depression, and migraines Social: quit smoking at age 55 after having smoked 3-4 packs for some and then decreased to 2 ppd and quit after 35 years, , Family: Mother at 50 of a heart attack and had valvular disease, father's history is unknown, one sister of cancer Allergies Allergy/AdvReac Type Severity Reaction Status Date / Time No Known Allergies Allergy Verified 04/28/22 19:31 Home Medications Medication Instructions Recorded Confirmed Type sertraline 100 mg tablet (Zoloft) 200 mg PO QAM #0 tab 07/09/19 04/28/22 History atorvastatin 10 mg tablet 10 mg PO QAM 07/14/19 04/28/22 History levothyroxine 75 mcg capsule 75 mcg PO DAILY 02/28/21 04/28/22 History divalproex 250 mg tablet,extended 250 mg PO DAILY #30 tab 02/20/22 04/28/22 Rx release 24 hr sumatriptan succinate 25 mg tablet 25 mg PO .COMPLEX PRN #9 tab 02/20/22 04/28/22 Rx warfarin 2 mg tablet See Rx Instructions PO UD tab 04/11/22 04/28/22 History albuterol sulfate 90 mcg/actuation 2 puff INHALATION Q4 PRN 04/28/22 04/28/22 History aerosol inhaler (Ventolin HFA) calcium carbonate 600 mg-vitamin 1 tab PO DAILY 04/28/22 04/28/22 History D3 10 mcg (400 unit) tablet (Calcium 600 + D(3)) multivitamin-ferrous 1 tab PO DAILY 04/28/22 04/28/22 History fumarate-folic acid 18 mg-400 mcg tablet (Complete Multivitamin-Multimineral) Patient History Medical History Anemia Anxiety Arrhythmia TACHYCARDIA Asthma stable Chronic back pain Deep vein thrombosis 2016 Depression Encounter for pre-operative examination n/a Endometriosis Hearing deficit History of deep vein thrombosis History of pulmonary embolism Hyperlipidemia Memory difficulties Migraine without aura, not intractable, without status migrainosus Osteoarthritis Peptic ulcer disease AT AGE 17 Psychogenic nonepileptic seizure Pulmonary embolism 2016 Seizure Per neurology 01/2018, episodes questionable seizure versus pseudoseizure activity (negative EEG). TIA (transient ischemic attack) Transient ischemic attack (TIA) GREATER THAN 1 YEAR AGO Uterine cancer Surgical History History of adenoidectomy History of cholecystectomy History of ear surgery RIGHT History of herniorrhaphy UMBILICAL History of tonsillectomy History of tooth extraction History of total abdominal hysterectomy and bilateral salpingo-oophorectomy Pacemaker SECONDARY TO SSS; PLACED 1993; REPLACEMENT 1999 Status post right knee replacement Social History Smoking Status: Former smoker Second Hand Exposure: No; Do You Dip or Chew Tobacco: No; Tobacco Cessation Education Requested by Patient: No Hx Alcohol Use: No Hx Substance Use: No Preferred Language: Slovenian Communication Ability: Effective Visual Impairment: No Limitations Toter Required: No Beliefs That Will Affect Care: None marital status: / Current Living Situation: Alone Other Information That Helps Us Care for You: No Feels Safe at Home: Yes Safety Concerns: Feels Safe At This Time Assistive Devices: Cane and Walker Review of Systems Review of Systems: All systems reviewed & are unremarkable except as noted in HPI & below Physical Exam Constitutional: WD/WN, vitals as above Respiratory: normal respiratory effort, lungs clear to auscultation Cardiovascular: Rate/Rhythm: regular rate and regular rhythm Heart Sounds: + murmur (3/6 lusb systolic murmur) Extremities: + edema (lle edema) Gastrointestinal (Abdomen): Percussion/Palpation: abdomen soft Skin: no rashes, warm and dry Neurologic: moves all extremities and awake Psychiatric: A+Ox3, euthymic affect Results & Data ([facility]) Vital Signs (Past 12 Hours) Vital Signs Pulse Resp BP Pulse Ox Pulse Ox 04/30/22 06:38 65 04/30/22 05:00 71 20 95 04/30/22 04:00 73 18 121/63 94 04/30/22 03:00 71 22 95 04/30/22 02:01 74 27 H 130/55 L 96 04/30/22 02:00 76 19 96 04/30/22 01:00 74 29 H 95 04/30/22 00:00 75 18 96 04/29/22 23:09 98 04/29/22 23:00 80 25 H 95 04/29/22 22:00 80 27 H 125/53 L 95 04/29/22 21:00 76 25 H 96
[2022-04-30] MEDS: ATORVASTATIN 10 MG TAB PO SCH (09:30)
--- NOTE | 2022-04-30 10:20 | Hospitalist Progress Note ---
Date of Service April 30, 2022 Assessment & Plan (1) Left leg cellulitis: Plan: Improving, afebrile, leukocytosis improving Cont rocephin and vancomycin, although MRSA swab negative-could dc Vanco if BCxs remain no growth by tomorrow Serial exams. Repeat CBC am. No new DVT seen on doppler - thus, VTE is not contributing to her left leg issues. (2) Acute on chronic diastolic CHF (congestive heart failure): Plan: significant decompensation there with acute respiratory failure with hypoxia, requiring 4 LNC have since stopped IVF and now diuresing lasix 20mg IV daily given today and yesterday ECHO with mild AI, preserved EF, mod , mod MR, mod-severe MS, elevated RVSP consult [facility] cardiology, Dr Weston Tariq-appreciated patient with h/o "asthma" - perhaps chronic asthma symptoms are all cardiac in nature. (3) Valvular heart disease: Plan: moderate on echo here moderate-severe MS on echo along with MR. consult cardiology - Dr Weston Tariq, [facility] cardiology. (4) Pulmonary hypertension: Plan: severe on echo. PA pressures should improve some with diuresis. some of her high PA pressure could be from undiagnosed/untreated CRUZ. some of her high PA pressure could be from valvular disease. some could be from prior PEs. will need formal 2-step O2 test or ABG before discharge. (5) Pacemaker: Plan: Placed 2nd to sinus node dysfunction, NOT MRI compatible. Was having remote checks for the device via the [facility] system. Will request an in-house pacer interrogation while hospitalized. (6) Deep vein thrombosis: Plan: Previous hospitalist spoke with radiology -The E superficial femoral and popliteal vein DVTs appear chronic and VERY SIMILAR to her 2020 doppler. This is likely residual DVT / chronic DVT rather than acute DVT. no need to change coumadin at this time. cont coumadin -- 4 mg on , 2 mg remainder of days. daily INR while here-subtherapeutic today at 1.9--> if still low tomorrow, lyudmila dge with Lovenox (7) Psychogenic nonepileptic seizure: Plan: Continue Depakote 250 mg daily. Follows with [facility] for such. Should check a depakote level while here-will do tomorrow (8) Migraine without aura, not intractable, without status migrainosus: Plan: Continue sumatriptan as needed. No headache at this time. (9) Hyperlipidemia: Plan: Continue atorvastatin 10 mg daily. (10) Depression: Plan: Continue sertraline 200 mg daily. Tongue movements - tardive dyskinesia from prior medications?? (11) TIA (transient ischemic attack): Plan: History of multiple TIA events cont coumadin for secondary prevention cont statin (12) Morbid obesity with BMI of 45.0-49.9, adult: Plan: BMI 45 (13) Hyponatremia: Plan: suspect 2nd to volume overload now improving with diuresis up tp 135 BMP am (14) Snoring: Plan: needs sleep study in the future (15) DVT prophylaxis: Plan: coumadin daily INR Plan: Dispo-continued stay on tele PT/OT consulted Admission and Anticipated Discharge Date Admission Date: April 28, 2022 Subjective Pt feels better, feels less left leg swelling and redness, less pain. Denies SOB at rest, no CP. Tam po. Review of Systems Review of Systems: All systems reviewed & are unremarkable except as noted in HPI & below Physical Exam Constitutional: WD/WN, vitals as above + morbidly obese Eyes: + anicteric sclerae ENMT: external ear and nose normal, oropharynx normal Neck: trachea midline, no thyromegaly Respiratory: normal respiratory effort, lungs clear to auscultation (diminished at bases) Cardiovascular: Rate/Rhythm: regular rate and regular rhythm Heart Sounds: + murmur (2/6 at RUSB systolic) Extremities: + edema (Left leg 1+ pitting edema, right trace) Chest (Breasts): Chest: + pacemaker (right axilla) Gastrointestinal (Abdomen): normal bowel sounds, soft, nontender, no hepatosplenomegaly Musculoskeletal: Extremities: extremities normal to inspection; no cyanosis and no clubbing Skin: + erythema (left leg circumferential,receding from marker line) Neurologic: moves all extremities and awake; no focal motor deficits Psychiatric: A+Ox3, euthymic affect Results & Data Results & Data ([facility]) Vital Signs (Past 12 Hours) Vital Signs Temp Pulse Resp BP Pulse Ox Pulse Ox 04/30/22 10:00 71 24 94 04/30/22 09:00 71 21 94 04/30/22 08:00 37.0 C 75 16 125/61 97 04/30/22 07:00 68 25 H 96 04/30/22 06:38 65 04/30/22 06:00 66 24 96 04/30/22 05:00 71 20 95 04/30/22 04:00 73 18 121/63 94 04/30/22 03:00 71 22 95 04/30/22 02:01 74 27 H 130/55 L 96 04/30/22 02:00 76 19 96 04/30/22 01:00 74 29 H 95 04/30/22 00:00 75 18 96 04/29/22 23:09 98 04/29/22 23:00 80 25 H 95 Laboratory Results 04/30/22 04/30/22 04/30/22 Range/Units 07:07 07:03 05:19 WBC (4.8-10.8) K/uL RBC (4.2-5.4) M/uL Hgb (12.0-16.0) g/dL Hct (37-47) % MCV (80-100) fL MCH (25-34) pg MCHC (32-36) g/dL RDW Std Deviation (36.4-46.3) fL RDW Coeff of Nick (11.5-14.5) % Plt Count (130-400) K/uL MPV (7.4-10.4) fL PT (9.0-12.0) Seconds INR (0.9-1.1) Sodium 135 L (136-145) mmol/L Potassium 3.9 (3.5-5.1) mmol/L Chloride 99 (98-107) mmol/L Carbon Dioxide 30 (21-32) mmol/L Anion Gap 6 (3-11) BUN 17 (6-23) mg/dl Creatinine 0.87 (0.6-1.2) mg/dl Est Cr Clr Drug Dosing 65.9 ml/min Est GFR ( Amer) 78.8 ml/min Est GFR (Non-Af Amer) 68.0 ml/min BUN/Creatinine Ratio 19.5 (10-20) Glucose 113 H (70-99(Fasting)) mg/dl Calcium 8.6 (8.5-10.1) mg/dl Magnesium 1.8 (1.7-2.4) mg/dl TSH 1.815 (0.300-4.500) uIu/ml Nasal Screen MRSA (PCR) (Negative) Valproic Acid 27 L (50-100) mcg/ml 04/30/22 04/30/22 04/29/22 Range/Units 05:19 05:19 09:00 WBC 15.10 H (4.8-10.8) K/uL RBC 3.73 L (4.2-5.4) M/uL Hgb 10.0 L (12.0-16.0) g/dL Hct 31.5 L (37-47) % MCV 84.5 (80-100) fL MCH 26.8 (25-34) pg MCHC 31.7 L (32-36) g/dL RDW Std Deviation 50.4 H (36.4-46.3) fL RDW Coeff of Nick 16.3 H (11.5-14.5) % Plt Count 179 (130-400) K/uL MPV 10.4 (7.4-10.4) fL PT 19.5 H (9.0-12.0) Seconds INR 1.9 H (0.9-1.1) Sodium (136-145) mmol/L Potassium (3.5-5.1) mmol/L Chloride (98-107) mmol/L Carbon Dioxide (21-32) mmol/L Anion Gap (3-11) BUN (6-23) mg/dl Creatinine (0.6-1.2) mg/dl Est Cr Clr Drug Dosing ml/min Est GFR ( Amer) ml/min Est GFR (Non-Af Amer) ml/min BUN/Creatinine Ratio (10-20) Glucose (70-99(Fasting)) mg/dl Calcium (8.5-10.1) mg/dl Magnesium (1.7-2.4) mg/dl TSH (0.300-4.500) uIu/ml Nasal Screen MRSA (PCR) Negative (Negative) Valproic Acid (50-100) mcg/ml PG Care Time/CCT Total # of Minutes Spent Total Time Spent with Patient: Total time spent is greater than 50% in coordination of care (as documented) at patient's floor/unit and/or counseling patient: Coding Level of Care Code 53715 Subseq Hosp Care Lvl 3 Diagnoses Left leg cellulitis L03.116 Acute on chronic diastolic CHF (congestive heart failure) I50.33 Valvular heart disease I38 Pulmonary hypertension I27.20 Pacemaker Z95.0 Deep vein thrombosis I82.432 Affected thrombotic vein of extremity: popliteal Chronicity: acute DVT location: lower extremity Laterality: left Psychogenic nonepileptic seizure F44.5 Migraine without aura, not intractable, without status migrainosus G43.009 Hyperlipidemia E78.5 Depression F32.9 TIA (transient ischemic attack) G45.9 Morbid obesity with BMI of 45.0-49.9, adult E66.01; Z68.42 Hyponatremia E87.1 Snoring R06.83 DVT prophylaxis Z29.9 (1) Deep vein thrombosis Affected thrombotic vein of extremity: popliteal Chronicity: acute DVT location: lower extremity Laterality: left Qualified Code(s): I82.432 - Acute embolism and thrombosis of left popliteal vein
[2022-04-30] MEDS: WARFARIN SOD 2 MG TAB PO SCH (16:54)
[2022-05-01] MEDS: VANCOMYCIN HCL 750 MG in SODIUM CHLORIDE 0.9% 250 ML IV SCH ×2 (02:36→14:47)
[2022-05-01] MEDS: LEVOTHYROXINE SODIUM 75 MCG TABLET PO SCH (05:24)
[2022-05-01 05:57] LABS: Basophils # (auto) 0.02 K/uL (0-0.2); Basophils % (auto) 0.2 %; Eosinophils # (auto) 0.44 K/uL (0-0.5); Eosinophils % (auto) 4.4 %; Hematocrit (blood only) 31.2 % (37-47); Hemoglobin 9.9 g/dL (12.0-16.0); Immature Granulocytes # (auto) 0.02 K/uL (0.00-0.02); Immature Granulocytes % (auto) 0.2 %; Lymphocytes # (auto) 1.03 K/uL (1.2-3.4); Lymphocytes % (auto) 10.3 %; Mean Corpuscular Hemoglobin 26.5 pg (25-34); Mean Corpuscular Hgb Conc 31.7 g/dL (32-36); Mean Corpuscular Volume 83.6 fL (80-100); Mean Platelet Volume 10.9 fL (7.4-10.4); Monocytes # (auto) 0.74 K/uL (0.11-0.59); Monocytes % (auto) 7.4 %; Neutrophils # (auto) 7.74 K/uL (1.4-6.5); Neutrophils % (auto) 77.5 %; Platelet Count 204 K/uL (130-400); RDW Coefficient of Variation 16.2 % (11.5-14.5); RDW Standard Deviation 49.9 fL (36.4-46.3); Red Blood Count 3.73 M/uL (4.2-5.4); White Blood Count 9.99 K/uL (4.8-10.8)
[2022-05-01 06:09] LABS: INR 1.8 (0.9-1.1); Prothrombin Time 18.7 Seconds (9.0-12.0)
[2022-05-01 06:20] LABS: Anion Gap 4 (3-11); BUN Creatinine Ratio 32.1 (10-20); Blood Urea Nitrogen 25 mg/dl (6-23); C Reactive Protein 22.25 mg/dl (0-0.5); Calcium 8.5 mg/dl (8.5-10.1); Carbon Dioxide 31 mmol/L (21-32); Chloride 101 mmol/L (98-107); Creatinine Clr Calc Pharmacy 73.5 ml/min; Est GFR (African American) 89.9 ml/min; Est GFR (Non-African American) 77.6 ml/min; Glucose 120 mg/dl (70-99(Fasting)); Sodium 136 mmol/L (136-145)
--- NOTE | 2022-05-01 08:58 | Cardiology Progress Note ---
Date of Service May 01, 2022 Assessment & Plan Admission and Anticipated Discharge Date Admission Date: April 28, 2022 Subjective She denies any shortness of breath talking in sentences. She has any lightheade dness or dizziness. She has no swelling of her right leg she has mild swelling over left leg which is chronic given her history of DVT. She denies any chest pain or chest pressure. She is unaware of any palpitations or fluttering. She lives on 1 floor. Her daughter does the grocery shopping and laundry for her. She does not leave the home except for doctors appointments. She did note increased abdominal distention as an outpatient this seems to have improved. She does snore very loudly. Results & Data ([facility]) Vital Signs (Past 12 Hours) Vital Signs Temp Pulse Pulse Resp BP Pulse Ox Pulse Ox 05/01/22 03:55 36.6 C 64 64 20 154/61 H 95 04/30/22 23:00 95 She is awake alert and oriented x3 HEENT 2+ carotids excellent carotid bruits Lungs: Clear to auscultation bilaterally no rales rhonchi or wheezing Heart: Regular rate and rhythm she has crescendo decrescendo murmur which is mid peaking peaking at the right upper sternal border she has a holosystolic murmur at the apex Abdomen: Soft nontender Chronically distended positive bowel sounds extremities no clubbing cyanosis or edema of the right leg she has mild edema of the left leg Assessment & Plan (1) Acute on chronic diastolic CHF (congestive heart failure): Impression: 1. Permanent pacemaker implantation in 1993 secondary to sinus node dysfunction; generator change in 1999, and generator change in 2010. 2. Moderate to severe mitral valve stenosis and moderate regurgitations 3. Moderate aortic stenosis 4. PA pressues >60 mmHg 5. HLD 6. 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 I would reduce her diuretics to 40 mg once a day as her BUN has risen this morning. 2. She needs education from nutrition with regards to a low-salt diet and daily weights 3. I would add low-dose amlodipine 2-1/2 mg daily to try to lower her PA pressures. We will have to watch for worsening lower extremity edema in the left leg which is likely secondary to her prior DVT now with venous insufficiency. 4. I would consider zip up compression stockings As I do not think she will be able to get regular standard compression stockings on at home. 5. I would ambulate her in the hallway and see how she does and hopefully be able to discontinue her oxygen.
[2022-05-01] MEDS ORDERED: FUROSEMIDE 40 MG/4 ML VIAL IV SCH (09:00)
[2022-05-01] MEDS: ATORVASTATIN 10 MG TAB PO SCH (09:48)
[2022-05-01] MEDS: CALCIUM 600MG + VIT D 400 IU TAB PO SCH (09:48)
[2022-05-01] MEDS: ENOXAPARIN 100 MG/1ML SYR SQ SCH ×2 (09:48→21:29)
[2022-05-01] MEDS: DIVALPROEX EXTENDED RELEASE 250 MG TABCR PO SCH (09:48)
[2022-05-01] MEDS: MAGNESIUM OXIDE 400 MG TAB PO SCH (09:49)
[2022-05-01] MEDS: CEROVITE ADV FORMULA TAB PO SCH (09:49)
[2022-05-01] MEDS: SERTRALINE HCL 100 MG TABLET PO SCH (09:49)
[2022-05-01] MEDS: amLODIPine BESYLATE 5 MG TAB PO SCH (10:23)
[2022-05-01] MEDS: cefTRIAXone SODIUM 2,000 MG in DEXTROSE 5% 50 ML IV SCH (10:24)
[2022-05-01] MEDS ORDERED: VANCOMYCIN TROUGH ONE (13:30)
--- NOTE | 2022-05-01 14:49 | Hospitalist Progress Note ---
Date of Service May 01, 2022 Assessment & Plan (1) Left leg cellulitis: Plan: Improving with less erythema receding from line, less warmth, pain improving, afebrile, leukocytosis now resolved Still w/ fairly significant edema to the legs L>R, some of which is apparently chronic MRSA nasal swab negative BCxs remain NGTD dc rocephin and vancomycin and convert to IV Ancef for narrower coverage now that BCxs neg Serial exams. Repeat CBC am. No new DVT seen on doppler - thus, VTE is not contributing to her left leg issues. (2) Acute on chronic diastolic CHF (congestive heart failure): Plan: significant decompensation with acute respiratory failure with hypoxia, requiring 4 LNC initially ECHO with mild AI, preserved EF, mod , mod MR, mod-severe MS, elevated RVSP consult [facility] cardiology, Dr Weston Tariq-appreciated patient with h/o "asthma" - perhaps chronic asthma symptoms are all cardiac in nature. Diursesing with IV lasix and now BUN rising slightly Still quite hypervolemic on exam but weaning down off O2, down to 2LNC -Cardiology recommends decreasing lasix to 40mg IV once daily due to rising BUN -starting amlodipine 2.5mg daily to reduce PA pressures -needs outpatient sleep study to assess for CRUZ -low Na+ diet, daily weights, strict I/Os (3) Valvular heart disease: Plan: moderate on echo here moderate-severe MS on echo along with MR. consult cardiology - Dr Weston Tariq, [facility] cardiology, appreciated (4) Pulmonary hypertension: Plan: severe on echo. PA pressures should improve some with diuresis. some of her high PA pressure could be from undiagnosed/untreated CRUZ. some of her high PA pressure could be from valvular disease. some could be from prior PEs. will need formal 2-step O2 test or ABG before discharge. -needs outpt sleep study -start amlodipine 2.5mg po daily to reduce PA pressures (5) Pacemaker: Plan: Placed 2nd to sinus node dysfunction, NOT MRI compatible. Was having remote checks for the device via the [facility] system. Will request an in-house pacer interrogation while hospitalized. Pending? Appreciate Cardiology consultation (6) Deep vein thrombosis: Plan: Previous hospitalist spoke with radiology -[facility] superficial femoral and popliteal vein DVTs appear chronic and VERY SIMILAR to her 2020 doppler. This is likely residual DVT / chronic DVT rather than acute DVT. cont coumadin but temporarily increase to 4mg daily as INR now subtherapeutic 2 days in a row -given h/o DVT and ongoing infection and hospitalization--> bridge with Lovenox 1mg/kg SQ bid until INR therapeutic -follow INR in AM (7) Psychogenic nonepileptic seizure: Plan: Continue Depakote 250 mg daily. Follows with [facility] Neurology for such. depakote level here is low at 27 (8) Migraine without aura, not intractable, without status migrainosus: Plan: Continue sumatriptan as needed. No headache at this time. (9) Hyperlipidemia: Plan: Continue atorvastatin 10 mg daily. (10) Depression: Plan: Continue sertraline 200 mg daily. Tongue movements - tardive dyskinesia from prior medications?? (11) TIA (transient ischemic attack): Plan: History of multiple TIA events cont coumadin for secondary prevention cont statin (12) Morbid obesity with BMI of 45.0-49.9, adult: Plan: BMI 45 (13) Hyponatremia: Plan: suspect 2nd to volume overload now resolved with diuresis BMP am (14) Snoring: Plan: needs sleep study in the future (15) DVT prophylaxis: Plan: coumadin daily INR Plan: Dispo-continued stay on tele PT/OT consulted and [facility] need rehab Admission and Anticipated Discharge Date Admission Date: April 28, 2022 Subjective Pt feeling better today. Less SOB except with walking. Weaned down to 2LNC when I saw her. Feels less pain in left leg. Is ambulating with assistance to the toilet and back. Tele with NSR, normal rates Review of Systems Review of Systems: All systems reviewed & are unremarkable except as noted in HPI & below Physical Exam Constitutional: WD/WN, vitals as above + morbidly obese Eyes: + anicteric sclerae Neck: trachea midline, no thyromegaly Respiratory: normal respiratory effort, lungs clear to auscultation (diminished at bases) Cardiovascular: Rate/Rhythm: regular rate and regular rhythm Heart Sounds: + murmur (2/6 at RUSB systolic) Extremities: + edema (Left leg 1+ pitting edema, right trace) Chest (Breasts): Chest: + pacemaker (right axilla) Gastrointestinal (Abdomen): normal bowel sounds, soft, nontender, no hepatosplenomegaly Musculoskeletal: Extremities: extremities normal to inspection; no cyanosis and no clubbing Skin: + erythema (left leg circumferential,receding from marker line,less warmth) Neurologic: moves all extremities and awake; no focal motor deficits Psychiatric: A+Ox3, euthymic affect Results & Data Results & Data ([facility]) Vital Signs (Past 12 Hours) Vital Signs Temp Pulse Pulse Resp BP Pulse Ox 05/01/22 09:00 36.8 C 68 16 147/62 H 94 05/01/22 03:55 36.6 C 64 64 20 154/61 H 95 Laboratory Results 05/01/22 05/01/22 05/01/22 Range/Units 13:22 06:39 05:37 WBC (4.8-10.8) K/uL RBC (4.2-5.4) M/uL Hgb (12.0-16.0) g/dL Hct (37-47) % MCV (80-100) fL MCH (25-34) pg MCHC (32-36) g/dL RDW Std Deviation (36.4-46.3) fL RDW Coeff of Nick (11.5-14.5) % Plt Count (130-400) K/uL MPV (7.4-10.4) fL Immature Gran % (Auto) % Neut % (Auto) % Lymph % (Auto) % [place] % (Auto) % Eos % (Auto) % Baso % (Auto) % Neut # (Auto) (1.4-6.5) K/uL Lymph # (Auto) (1.2-3.4) K/uL [place] # (Auto) (0.11-0.59) K/uL Eos # (Auto) (0-0.5) K/uL Baso # (Auto) (0-0.2) K/uL Immature Gran # (Auto) (0.00-0.02) K/uL PT (9.0-12.0) Seconds INR (0.9-1.1) Sodium 136 (136-145) mmol/L Potassium 4.0 TNP Chloride 101 (98-107) mmol/L Carbon Dioxide 31 (21-32) mmol/L Anion Gap 4 (3-11) BUN 25 H (6-23) mg/dl Creatinine 0.78 (0.6-1.2) mg/dl Est Cr Clr Drug Dosing 73.5 ml/min Est GFR ( Amer) 89.9 ml/min Est GFR (Non-Af Amer) 77.6 ml/min BUN/Creatinine Ratio 32.1 H (10-20) Glucose 120 H (70-99(Fasting)) mg/dl Calcium 8.5 (8.5-10.1) mg/dl C-Reactive Protein 22.25 H (0-0.5) mg/dl Vancomycin Trough 11.1 (10-20) mcg/ml 05/01/22 05/01/22 Range/Units 05:37 05:37 WBC 9.99 (4.8-10.8) K/uL RBC 3.73 L (4.2-5.4) M/uL Hgb 9.9 L (12.0-16.0) g/dL Hct 31.2 L (37-47) % MCV 83.6 (80-100) fL MCH 26.5 (25-34) pg MCHC 31.7 L (32-36) g/dL RDW Std Deviation 49.9 H (36.4-46.3) fL RDW Coeff of Nick 16.2 H (11.5-14.5) % Plt Count 204 (130-400) K/uL MPV 10.9 H (7.4-10.4) fL Immature Gran % (Auto) 0.2 % Neut % (Auto) 77.5 % Lymph % (Auto) 10.3 % [place] % (Auto) 7.4 % Eos % (Auto) 4.4 % Baso % (Auto) 0.2 % Neut # (Auto) 7.74 H (1.4-6.5) K/uL Lymph # (Auto) 1.03 L (1.2-3.4) K/uL [place] # (Auto) 0.74 H (0.11-0.59) K/uL Eos # (Auto) 0.44 (0-0.5) K/uL Baso # (Auto) 0.02 (0-0.2) K/uL Immature Gran # (Auto) 0.02 (0.00-0.02) K/uL PT 18.7 H (9.0-12.0) Seconds INR 1.8 H (0.9-1.1) Sodium (136-145) mmol/L Potassium Chloride (98-107) mmol/L Carbon Dioxide (21-32) mmol/L Anion Gap (3-11) BUN (6-23) mg/dl Creatinine (0.6-1.2) mg/dl Est Cr Clr Drug Dosing ml/min Est GFR ( Amer) ml/min Est GFR (Non-Af Amer) ml/min BUN/Creatinine Ratio (10-20) Glucose (70-99(Fasting)) mg/dl Calcium (8.5-10.1) mg/dl C-Reactive Protein (0-0.5) mg/dl Vancomycin Trough (10-20) mcg/ml PG Care Time/CCT Total # of Minutes Spent Total Time Spent with Patient: Total time spent is greater than 50% in coordination of care (as documented) at patient's floor/unit and/or counseling patient: Coding Level of Care Code 77051 Subseq Hosp Care Lvl 3 Diagnoses Left leg cellulitis L03.116 Acute on chronic diastolic CHF (congestive heart failure) I50.33 Valvular heart disease I38 Pulmonary hypertension I27.20 Pacemaker Z95.0 Deep vein thrombosis I82.432 Affected thrombotic vein of extremity: popliteal Chronicity: acute DVT location: lower extremity Laterality: left Psychogenic nonepileptic seizure F44.5 Migraine without aura, not intractable, without status migrainosus G43.009 Hyperlipidemia E78.5 Depression F32.9 TIA (transient ischemic attack) G45.9 Morbid obesity with BMI of 45.0-49.9, adult E66.01; Z68.42 Hyponatremia E87.1 Snoring R06.83 DVT prophylaxis Z29.9 (1) Deep vein thrombosis Affected thrombotic vein of extremity: popliteal Chronicity: acute DVT location: lower extremity Laterality: left Qualified Code(s): I82.432 - Acute embolism and thrombosis of left popliteal vein
[2022-05-01] MEDS: ceFAZolin 1000MG 1,000 MG/7.5 ML SYR IV SCH ×2 (15:55→23:53)
[2022-05-01] MEDS: WARFARIN SOD 4 MG TAB PO SCH (15:56)
[2022-05-02] MEDS: LEVOTHYROXINE SODIUM 75 MCG TABLET PO SCH (06:15)
[2022-05-02 06:20] LABS: Basophils # (auto) 0.03 K/uL (0-0.2); Basophils % (auto) 0.4 %; Eosinophils # (auto) 0.54 K/uL (0-0.5); Eosinophils % (auto) 7.8 %; Hematocrit (blood only) 32.6 % (37-47); Hemoglobin 10.2 g/dL (12.0-16.0); Immature Granulocytes # (auto) 0.02 K/uL (0.00-0.02); Immature Granulocytes % (auto) 0.3 %; Lymphocytes # (auto) 1.29 K/uL (1.2-3.4); Lymphocytes % (auto) 18.6 %; Mean Corpuscular Hgb Conc 31.3 g/dL (32-36); Mean Corpuscular Volume 83.2 fL (80-100); Mean Platelet Volume 10.7 fL (7.4-10.4); Monocytes # (auto) 0.83 K/uL (0.11-0.59); Neutrophils # (auto) 4.22 K/uL (1.4-6.5); Neutrophils % (auto) 60.9 %; Platelet Count 256 K/uL (130-400); RDW Coefficient of Variation 16.1 % (11.5-14.5); RDW Standard Deviation 48.7 fL (36.4-46.3); Red Blood Count 3.92 M/uL (4.2-5.4); White Blood Count 6.93 K/uL (4.8-10.8)
[2022-05-02 06:21] LABS: INR 1.9 (0.9-1.1); Prothrombin Time 19.8 Seconds (9.0-12.0)
[2022-05-02 06:39] LABS: BUN Creatinine Ratio 40.8 (10-20); Calcium 8.8 mg/dl (8.5-10.1); Creatinine Clr Calc Pharmacy 74.1 ml/min; Est GFR (African American) 92.8 ml/min; Potassium 3.8 mmol/L (3.5-5.1)
[2022-05-02] MEDS ORDERED: POTASSIUM CHLORIDE CRTAB 20 MEQ TABCR PO STA (07:48)
[2022-05-02] MEDS: amLODIPine BESYLATE 5 MG TAB PO SCH (08:15)
[2022-05-02] MEDS: ceFAZolin 1000MG 1,000 MG/7.5 ML SYR IV SCH ×3 (08:15→22:31)
[2022-05-02] MEDS: ENOXAPARIN 100 MG/1ML SYR SQ SCH ×2 (08:15→19:47)
[2022-05-02] MEDS: MAGNESIUM OXIDE 400 MG TAB PO SCH (08:16)
[2022-05-02] MEDS: ATORVASTATIN 10 MG TAB PO SCH (08:16)
[2022-05-02] MEDS: DIVALPROEX EXTENDED RELEASE 250 MG TABCR PO SCH (08:16)
[2022-05-02] MEDS: CALCIUM 600MG + VIT D 400 IU TAB PO SCH (08:16)
[2022-05-02] MEDS: SERTRALINE HCL 100 MG TABLET PO SCH (08:17)
[2022-05-02] MEDS: CEROVITE ADV FORMULA TAB PO SCH (08:17)
[2022-05-02] MEDS ORDERED: FUROSEMIDE 40 MG/4 ML VIAL IV SCH (09:00)
--- NOTE | 2022-05-02 12:02 | Cardiology Progress Note ---
Date of Service May 02, 2022 Assessment & Plan Admission and Anticipated Discharge Date Admission Date: April 28, 2022 Subjective She is out of bed sitting in a chair. She does not appear short of breath talki ng in sentences. She denies any significant dyspnea she has no swelling of her right leg and chronic swelling of her left leg due to venous insufficiency. She denies any lightheadedness or dizziness. She has any fevers or chills. Overall she is feeling better and would like to go home if at all possible. Her oxygen has been removed she feels comfortable on room air at rest it sounds like she did need oxygen at night last evening. Results & Data ([facility]) Vital Signs (Past 12 Hours) Vital Signs Temp Pulse Pulse Resp BP Pulse Ox 05/02/22 04:00 36.4 C L 65 15 103/65 93 05/02/22 00:00 36.4 C L 67 69 19 128/67 95 She is awake alert and oriented x3 HEENT 2+ carotids excellent carotid bruits Lungs: Clear to auscultation bilaterally but globally decreasedno rales rhonchi or wheezing Heart: Regular rate and rhythm she has crescendo decrescendo murmur which is mid peaking peaking at the right upper sternal border she has a holosystolic murmur at the apex Abdomen: Soft nontender Chronically distended positive bowel sounds extremities no clubbing cyanosis or edema of the right leg she has mild edema of the left leg Assessment & Plan (1) Acute on chronic diastolic CHF (congestive heart failure): Impression: 1. Permanent pacemaker implantation in 1993 secondary to sinus node dysfunction; generator change in 1999, and generator change in 2010. 2. Moderate to severe mitral valve stenosis and moderate regurgitations 3. Moderate aortic stenosis 4. PA pressues >60 mmHg 5. HLD 6. 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 I recommend changing her Lasix over to 40 mg p.o. daily. She will need a BMP in 7 to 10 days to make sure she is not excessively prerenal as she was not on diuretics according to her home med list. She gets her food from [employer] and then anything else she makes she warms in a microwave such as soup. She is likely getting more salt than she anticipates. 2. She needs education from nutrition with regards to a low-salt diet and daily weights 3. I would add low-dose amlodipine 2-1/2 mg daily to try to lower her PA pressures. Her blood pressure this morning is acceptable and have improved compared to yesterday. Again we will have to watch for any lower extremity edema that worsens especially in the left leg due to her previous history of venous insufficiency 4. I would consider zip up compression stockings As I do not think she will be able to get regular standard compression stockings on at home. 5. I would ambulate her in the hallway and see how she does and hopefully be able to discontinue her oxygen We will arrange for follow-up in the office in approximately 2 weeks. In the interim if there are any questions please do not hesitate to contact us.
[2022-05-02] MEDS ORDERED: WARFARIN SOD 4 MG TAB PO SCH (16:00)
[2022-05-02] MEDS: WARFARIN SOD 4 MG TAB PO SCH (16:08)
--- NOTE | 2022-05-02 19:22 | Hospitalist Progress Note ---
Date of Service May 02, 2022 Assessment & Plan (1) Left leg cellulitis: Plan: Improving with less erythema receding from line, less warmth, pain improving, afebrile, leukocytosis now resolved Still w/ fairly significant edema to the legs L>R, some of which is apparently chronic MRSA nasal swab negative BCxs remain NGTD Initially treated with rocephin and vancomycin and converted to IV Ancef on 05/01 for narrower coverage now that BCxs neg Serial exams. Repeat CBC am. No new DVT seen on doppler - thus, VTE is not contributing to her left leg issues. -Asked nurse to elevate the leg to help with the edema Will likely need compression stockings on discharge after cellulitis resolved (2) Acute on chronic diastolic CHF (congestive heart failure): Plan: significant decompensation with acute respiratory failure with hypoxia, requiring 4 LNC initially and now weaned to room air with IV diuresis ECHO with mild AI, preserved EF, mod , mod MR, mod-severe MS, elevated RVSP consult [facility] cardiology, Dr Weston Tariq-appreciated patient with h/o "asthma" - perhaps chronic asthma symptoms are all cardiac in nature. Diursesed with IV lasix and now BUN rising slightly Still quite hypervolemic on exam but weaned off O2 -Cardiology recommends converting Lasix to 40 Mg p.o. once daily -Cardiology started amlodipine 2.5mg daily to reduce PA pressures -needs outpatient sleep study to assess for CRUZ-discussed with patient and her daughter -low Na+ diet, daily weights, strict I/Os (3) Anemia: Plan: Hemoglobin mildly low at 10.2, MCV low normal at 83 WBC count and platelets normal TSH here normal -Check iron studies, B12, folate in the morning (4) Pulmonary hypertension: Plan: severe on echo. PA pressures should improve some with diuresis. some of her high PA pressure could be from undiagnosed/untreated CRUZ. some of her high PA pressure could be from valvular disease. some could be from prior PEs. will need formal 2-step O2 test or ABG before discharge. -needs outpt sleep study -started amlodipine 2.5mg po daily to reduce PA pressures (5) Valvular heart disease: Plan: moderate on echo here moderate-severe MS on echo along with MR. consult cardiology - Dr Weston Tariq, [facility], appreciated Needs outpatient cardiology follow-up routinely (6) Pacemaker: Plan: Placed 2nd to sinus node dysfunction, NOT MRI compatible. Was having remote checks for the device via the [facility] system. It is functioning normally Appreciate Cardiology consultation Follow-up routinely in outpatient cardiology office (7) Deep vein thrombosis: Plan: Previous hospitalist spoke with radiology -[facility] superficial femoral and popliteal vein DVTs appear chronic and VERY SIMILAR to her 2020 doppler. This is likely residual DVT / chronic DVT rather than acute DVT. cont coumadin but temporarily increase to 4mg daily as INR now subtherapeutic 3 days in a row -given h/o DVT and ongoing infection and hospitalization--> continue to bridge with Lovenox 1mg/kg SQ bid until INR therapeutic -follow INR in AM (8) Psychogenic nonepileptic seizure: Plan: Continue Depakote 250 mg daily. Follows with [facility] Neurology for such. depakote level here is low at 27 (9) Migraine without aura, not intractable, without status migrainosus: Plan: Continue sumatriptan as needed. No headache at this time. (10) Hyperlipidemia: Plan: Continue atorvastatin 10 mg daily. (11) Depression: Plan: Continue sertraline 200 mg daily. Tongue movements - tardive dyskinesia from prior medications?? (12) TIA (transient ischemic attack): Plan: History of multiple TIA events cont coumadin for secondary prevention cont statin (13) Morbid obesity with BMI of 45.0-49.9, adult: Plan: BMI 45 (14) Hyponatremia: Plan: suspect 2nd to volume overload now resolved with diuresis BMP am (15) Snoring: Plan: needs sleep study in the future (16) DVT prophylaxis: Plan: coumadin daily INR Plan: Dispo-continued stay on tele PT/OT consulted and she may need rehab-need PT to reassess tomorrow Admission and Anticipated Discharge Date Admission Date: April 28, 2022 Subjective Patient reports feeling a little bit better. She is anxious for discharge. She is weaned off of oxygen and is on room air at rest. She denies any shortness of breath with walking to the bathroom and back. She does note that her leg is still red but is much less painful than previously. Review of Systems Review of Systems: All systems reviewed & are unremarkable except as noted in HPI & below Physical Exam Constitutional: WD/WN, vitals as above + morbidly obese Eyes: + anicteric sclerae Neck: trachea midline, no thyromegaly Respiratory: normal respiratory effort, lungs clear to auscultation (diminished at bases) Cardiovascular: Rate/Rhythm: regular rate and regular rhythm Heart Sounds: + murmur (2/6 at RUSB systolic) Extremities: + edema (Left leg 1+ pitting edema, right trace) Chest (Breasts): Chest: + pacemaker (right axilla) Gastrointestinal (Abdomen): normal bowel sounds, soft, nontender, no hepatosplenomegaly Musculoskeletal: Extremities: extremities normal to inspection; no cyanosis and no clubbing Skin: + erythema (left leg circumferential,receding from marker line,less warmth) Neurologic: moves all extremities and awake; no focal motor deficits Psychiatric: A+Ox3, euthymic affect Results & Data Results & Data ([facility]) Vital Signs (Past 12 Hours) Vital Signs Temp Pulse Pulse Resp BP Pulse Ox 05/02/22 16:00 63 17 158/70 H 95 05/02/22 15:45 64 05/02/22 12:00 36.5 C 63 16 117/59 L 92 05/02/22 08:30 69 05/02/22 08:00 36.6 C 71 19 154/72 H 95 Laboratory Results 05/02/22 05/02/22 05/02/22 Range/Units 05:42 05:42 05:42 WBC 6.93 (4.8-10.8) K/uL RBC 3.92 L (4.2-5.4) M/uL Hgb 10.2 L (12.0-16.0) g/dL Hct 32.6 L (37-47) % MCV 83.2 (80-100) fL MCH 26.0 (25-34) pg MCHC 31.3 L (32-36) g/dL RDW Std Deviation 48.7 H (36.4-46.3) fL RDW Coeff of Nick 16.1 H (11.5-14.5) % Plt Count 256 (130-400) K/uL MPV 10.7 H (7.4-10.4) fL Immature Gran % (Auto) 0.3 % Neut % (Auto) 60.9 % Lymph % (Auto) 18.6 % [place] % (Auto) 12.0 % Eos % (Auto) 7.8 % Baso % (Auto) 0.4 % Neut # (Auto) 4.22 (1.4-6.5) K/uL Lymph # (Auto) 1.29 (1.2-3.4) K/uL [place] # (Auto) 0.83 H (0.11-0.59) K/uL Eos # (Auto) 0.54 H (0-0.5) K/uL Baso # (Auto) 0.03 (0-0.2) K/uL Immature Gran # (Auto) 0.02 (0.00-0.02) K/uL PT 19.8 H (9.0-12.0) Seconds INR 1.9 H (0.9-1.1) Sodium 138 (136-145) mmol/L Potassium 3.8 (3.5-5.1) mmol/L Chloride 100 (98-107) mmol/L Carbon Dioxide 33 H (21-32) mmol/L Anion Gap 5 (3-11) BUN 31 H (6-23) mg/dl Creatinine 0.76 (0.6-1.2) mg/dl Est Cr Clr Drug Dosing 74.1 ml/min Est GFR ( Amer) 92.8 ml/min Est GFR (Non-Af Amer) 80.0 ml/min BUN/Creatinine Ratio 40.8 H (10-20) Glucose 104 H (70-99(Fasting)) mg/dl Calcium 8.8 (8.5-10.1) mg/dl Magnesium 2.0 (1.7-2.4) mg/dl PG Care Time/CCT Total # of Minutes Spent Total Time Spent with Patient: Total time spent is greater than 50% in coordination of care (as documented) at patient's floor/unit and/or counseling patient: Coding Level of Care Code 21143 Subseq Hosp Care Lvl 3 Diagnoses Left leg cellulitis L03.116 Acute on chronic diastolic CHF (congestive heart failure) I50.33 Valvular heart disease I38 Pulmonary hypertension I27.20 Pacemaker Z95.0 Deep vein thrombosis I82.432 Affected thrombotic vein of extremity: popliteal Chronicity: acute DVT location: lower extremity Laterality: left Psychogenic nonepileptic seizure F44.5 Migraine without aura, not intractable, without status migrainosus G43.009 Hyperlipidemia E78.5 Depression F32.9 TIA (transient ischemic attack) G45.9 Morbid obesity with BMI of 45.0-49.9, adult E66.01; Z68.42 Hyponatremia E87.1 Snoring R06.83 DVT prophylaxis Z29.9 Anemia D64.9 (1) Deep vein thrombosis Affected thrombotic vein of extremity: popliteal Chronicity: acute DVT location: lower extremity Laterality: left Qualified Code(s): I82.432 - Acute embolism and thrombosis of left popliteal vein
[2022-05-03] MEDS: LEVOTHYROXINE SODIUM 75 MCG TABLET PO SCH (06:05)
[2022-05-03] MEDS: ceFAZolin 1000MG 1,000 MG/7.5 ML SYR IV SCH (06:08)
[2022-05-03 06:26] LABS: Basophils # (auto) 0.05 K/uL (0-0.2); Basophils % (auto) 0.8 %; Eosinophils # (auto) 0.43 K/uL (0-0.5); Eosinophils % (auto) 7.1 %; Hematocrit (blood only) 32.6 % (37-47); Hemoglobin 10.4 g/dL (12.0-16.0); Immature Granulocytes # (auto) 0.02 K/uL (0.00-0.02); Immature Granulocytes % (auto) 0.3 %; Lymphocytes # (auto) 1.35 K/uL (1.2-3.4); Lymphocytes % (auto) 22.3 %; Mean Corpuscular Hemoglobin 26.3 pg (25-34); Mean Corpuscular Hgb Conc 31.9 g/dL (32-36); Mean Corpuscular Volume 82.3 fL (80-100); Mean Platelet Volume 10.5 fL (7.4-10.4); Monocytes # (auto) 0.91 K/uL (0.11-0.59); Neutrophils % (auto) 54.5 %; Platelet Count 268 K/uL (130-400); RDW Coefficient of Variation 15.8 % (11.5-14.5); Red Blood Count 3.96 M/uL (4.2-5.4); White Blood Count 6.06 K/uL (4.8-10.8)
[2022-05-03 06:39] LABS: INR 2.3 (0.9-1.1); Prothrombin Time 23.2 Seconds (9.0-12.0)
[2022-05-03 07:03] LABS: Albumin Level 3.4 gm/dl (3.4-5.0); BUN Creatinine Ratio 35.9 (10-20); Bilirubin,Total 0.5 mg/dl (0.2-1.0); C Reactive Protein 9.82 mg/dl (0-0.5); Calcium 9.1 mg/dl (8.5-10.1); Creatinine Clr Calc Pharmacy 72.2 ml/min; Est GFR (African American) 89.9 ml/min; Est GFR (Non-African American) 77.6 ml/min; Globulin 3.5 gm/dl (2.5-4.0); Potassium 4.2 mmol/L (3.5-5.1); Total Protein 6.9 gm/dl (6.0-8.3)
[2022-05-03 07:29] LABS: Folate (Folic Acid) > 22.30 ng/ml (>5.38)
[2022-05-03 07:30] LABS: Vitamin B12 780 pg/ml (180-914)
[2022-05-03] MEDS ORDERED: FUROSEMIDE 40 MG TAB PO SCH (09:00)
[2022-05-03] MEDS: CALCIUM 600MG + VIT D 400 IU TAB PO SCH (09:52)
[2022-05-03] MEDS: MAGNESIUM OXIDE 400 MG TAB PO SCH (09:52)
[2022-05-03] MEDS: DIVALPROEX EXTENDED RELEASE 250 MG TABCR PO SCH (09:52)
[2022-05-03] MEDS: CEROVITE ADV FORMULA TAB PO SCH (09:52)
[2022-05-03] MEDS: SERTRALINE HCL 100 MG TABLET PO SCH (09:52)
[2022-05-03] MEDS: amLODIPine BESYLATE 5 MG TAB PO SCH (09:52)
[2022-05-03] MEDS: ATORVASTATIN 10 MG TAB PO SCH (09:52)
--- NOTE | 2022-05-03 11:01 | Discharge Summary ---
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 States last night on the medial aspect of her ankle, she had a small round spot of redness that has since developed into circumferential redness from her ankle to mid calf. Her leg has become more swollen and painful since then, making it difficult for her to ambulate, therefore she has been using a wheelchair to avoid putting pressure on the foot. No fever or chills, she has had no recent injuries to the extremity or animal bites that she is aware of, no shortness, of breath, chest pain/tightness, or palpitations. No pets at home. Does have a history of a DVT and PE in 2015, as well as multiple TIAs. She has been on warfarin for many years now since her initial PE in 2014, current dose is 4 mg on , 2 mg all other days. She denies missing any doses recently. In ED, she is hypertensive 148/80, otherwise VS wnl and stable. Labs largely unremarkable, significant for WBC 18.79, CRP 4.48, ESR 70, PCT < 0.05. Hgb 11.7, PT 22.1, INR 2.2 (goal 2.0 - 3.0). Venous Doppler positive for deep vein is thrombosis within the superficial femoral and popliteal veins. Principal Diagnosis Acute on chronic HFpEF, Lower extremity cellulitis, Acute respiratory failure with hypoxia Discharge Exam Constitutional WD/WN, vitals as above + morbidly obese Eyes + anicteric sclerae Neck trachea midline, no thyromegaly Respiratory normal respiratory effort, lungs clear to auscultation (diminished at bases) Cardiovascular Rate/Rhythm: regular rate and regular rhythm Heart Sounds: + murmur (2/6 at RUSB systolic) Extremities: + edema (Left leg 1+ pitting edema, right trace) Chest (Breasts) Chest: + pacemaker (right axilla) Gastrointestinal (Abdomen) normal bowel sounds, soft, nontender, no hepatosplenomegaly Musculoskeletal Extremities: extremities normal to inspection; no cyanosis and no clubbing Skin + erythema (left leg much improved, receding from marker line,much less warmth) Neurologic moves all extremities and awake; no focal motor deficits Psychiatric A+Ox3, euthymic affect Discharge Data Allergies Allergy/AdvReac Type Severity Reaction Status Date / Time No Known Allergies Allergy Verified 04/28/22 19:31 Consultations 04/28/22 19:49 ED Decision to Admit Stat 04/29/22 20:20 Consult Cardiology Routine Ordered Studies 04/28/22 17:05 US venous doppler LE LT Stat ECHO Hospital Course (1) Left leg cellulitis: Improving with less erythema receding from line, less warmth, pain improving, afebrile, leukocytosis now resolved Improving edema to the legs L>R, some of which is apparently chronic MRSA nasal swab negative BCxs remain NGTD Initially treated with rocephin and vancomycin and converted to IV Ancef on 05/01 for narrower coverage now that BCxs neg--> convert to po keflex 500mg po tid on discharge x 7 more days No new DVT seen on doppler - thus, VTE is not contributing to her left leg issues. -continue to elevate the leg to help with the edema Will likely need compression stockings on discharge after cellulitis resolved (2) Acute on chronic diastolic CHF (congestive heart failure): significant decompensation with acute respiratory failure with hypoxia, requiring 4 LNC initially and now weaned to room air with IV diuresis ECHO with mild AI, preserved EF, mod , mod MR, mod-severe MS, elevated RVSP consult [facility] cardiology, Dr Weston Tariq-appreciated patient with h/o "asthma" - perhaps chronic asthma symptoms are all cardiac in nature. Diursesed with IV lasix and now BUN rising slightly Still quite hypervolemic on exam but weaned off O2 -Cardiology recommends converting Lasix to 40 Mg p.o. once daily -Cardiology started amlodipine 2.5mg daily to reduce PA pressures -needs outpatient sleep study to assess for CRUZ-discussed with patient and her daughter -low Na+ diet, daily weights, strict I/Os, fluid restrict to 1800mL/day at home (3) Anemia: Hemoglobin mildly low at 10.2, MCV low normal at 83 WBC count and platelets normal TSH here normal - iron studies, B12, folate all normal--> likely anemia of chronic disease (4) Pulmonary hypertension: severe on echo. PA pressures should improve some with diuresis. some of her high PA pressure could be from undiagnosed/untreated CRUZ. some of her high PA pressure could be from valvular disease. some could be from prior PEs. formal 2-step O2 test before discharge showed needs O2 with exertion -needs outpt sleep study -started amlodipine 2.5mg po daily to reduce PA pressures (5) Valvular heart disease: moderate on echo here moderate-severe MS on echo along with MR. consult cardiology - Dr Weston Tariq, [facility], appreciated Needs outpatient cardiology follow-up routinely (6) Pacemaker: Placed 2nd to sinus node dysfunction, NOT MRI compatible. Was having remote checks for the device via the [facility] system. It is functioning normally Appreciate Cardiology consultation Follow-up routinely in outpatient cardiology office (7) Deep vein thrombosis: Previous hospitalist spoke with radiology -The E superficial femoral and popliteal vein DVTs appear chronic and VERY SIMILAR to her 2020 doppler. This is likely residual DVT / chronic DVT rather than acute DVT. increased to 4mg dailyx 2 days as INR subtherapeutic 3 days in a row. INR now therapeutic and briding Lovenox dcd -follow INR as an outpt (8) Psychogenic nonepileptic seizure: Continue Depakote 250 mg daily. Follows with [facility] for such. depakote level here is low at 27 (9) Migraine without aura, not intractable, without status migrainosus: Continue sumatriptan as needed. No headache at this time. (10) Hyperlipidemia: Continue atorvastatin 10 mg daily. (11) Depression: Continue sertraline 200 mg daily. Tongue movements - tardive dyskinesia from prior medications?? (12) TIA (transient ischemic attack): History of multiple TIA events cont coumadin for secondary prevention cont statin (13) Morbid obesity with BMI of 45.0-49.9, adult: BMI 45 (14) Hyponatremia: suspect 2nd to volume overload now resolved with diuresis (15) Snoring: needs sleep study in the future (16) DVT prophylaxis: coumadin Dispo-dc to home, cleared by PT, home O2 ordered Total Time Total Time Spent Total Time Spent (In Minutes): 40 min Discharge Plan Discharge Items Patient Disposition: Home - Self-Care Reason For Visit: CHEST PAIN Discharge Diagnosis: CHF, Leg cellulitis, Hypoxia Condition on Discharge: Good Activity: Resume your previous activity Non-emergency contact: Primary Care Provider and [employer] Service Technician Call non-emergency contact if: you have any medication questions, your symptoms worsen, your pain is not controlled and you have a fever Follow-up/Referrals: Weston Tariq DO [Physician] - (Follow up within 2 weeks) Giovanna Lopes CRNP [Primary Care Provider] - (Follow up within 1-2 weeks) Diet: Heart Healthy and Low Sodium (2gm) Fluids: 1800ml (7 cups) Addtl Attending Provider Instructions: You were admitted with low oxygen levels secondary to congestive heart failure. You had fluid taken off with diuretics and will need to continue on a daily water pill called furosemide. You were also started on a medication called amlodipine to help with this. You will need to wear oxygen when you walk around at home. Please follow up with Dr. Tariq of Cardiology within 2 weeks. For your leg infection, please finish out 1 more week of an antibiotic called cephalexin. Try to keep your leg elevated as much as you can when you are sitting down. Follow up with your PCP within 1-2 weeks. Call your Primary Care doctor if any of the following symptoms or problems start or get worse: * Shortness of breath or difficulty breathing * Wake up at night short of breath * Chest pain * Cough * Swelling of your hands, feet, or legs * More fatigued or tired with your normal activity * Palpitations - sudden fast heart beats WEIGHT * Weigh yourself every morning after using the bathroom. * Use the same scale. * Wear the same amount of clothing. * Write your weight down on a chart. * Call your Primary Care doctor if you gain more than 2-3 pounds in 1-2 days. MEDICATIONS * Use this discharge instruction sheet for medication instructions. * Take your medications at the time your doctor ordered. * Do not skip a dose of your medicines. * If you miss a dose of medicine, take it as soon as possible, but DO NOT DOUBLE A DOSE. * Read your medicine information when you get home. * Know all of the side effects of your medicine. If in doubt, ask your pharmacist * Call your Primary Care doctor's office if you have any side effects. * Be sure all of your doctors know what medicine and herbs you take (including cold, flu, and herbal medicine). Take the following with you to your follow-up doctor appointments: * Weight Chart * Medication List * List of questions Do not drink excessive alcohol, beer or wine. Pending Studies at Discharge: No Stand-Alone Forms: My [facility], Smoking Cessation Medications and DC Order Prescriptions: New amlodipine 2.5 mg tablet 2.5 mg PO DAILY Qty: 30 RF: 0 furosemide 40 mg Tablet 40 mg PO QAM Qty: 30 RF: 0 magnesium oxide 400 mg (241.3 mg magnesium) Tablet 400 mg PO QAM Qty: 30 RF: 0 cephalexin 500 mg capsule 500 mg PO Q8H 7 Days Qty: 21 RF: 0 Continued warfarin 2 mg tablet See Rx Instructions PO UD RF: 0 levothyroxine 75 mcg capsule 75 mcg PO DAILY RF: 0 sertraline [Zoloft] 100 mg tablet 200 mg PO QAM Qty: 0 RF: 0 atorvastatin 10 mg tablet 10 mg PO QAM RF: 0 divalproex 250 mg tablet extended release 24 hr 250 mg PO DAILY Qty: 30 RF: 11 sumatriptan succinate 25 mg tablet 25 mg PO .COMPLEX PRN (Reason: migraine headache) Qty: 9 RF: 5 albuterol sulfate [Ventolin HFA] 90 mcg/actuation HFA aerosol inhaler 2 puff INHALATION Q4 PRN (Reason: Wheezing) RF: 0 Complete Multivitamin-Mineral 18-400 mg-mcg Tablet 1 tab PO DAILY RF: 0 calcium carbonate-vitamin D3 [Calcium 600 + D(3)] 600 mg-10 mcg (400 unit) Tablet 1 tab PO DAILY RF: 0 Discharge Orders: Discharge Order (Routine); Ordered 05/03/22 Ordered By: Saritha Gastelum Admission Data Admit Date/Time: 04/28/22 20:57 Attending Provider: Saritha Gastelum Admit Provider: Kamari Wooten Primary Care Provider: Giovanna Lopes Other Providers: Satya Greene ; Weston Tariq Coding Level of Care Code D/C DAY MANAGEMENT >30 MINS Diagnoses Left leg cellulitis L03.116 Acute on chronic diastolic CHF (congestive heart failure) I50.33 Anemia D64.9 Pulmonary hypertension I27.20 Valvular heart disease I38 Pacemaker Z95.0 Deep vein thrombosis I82.432 Affected thrombotic vein of extremity: popliteal Chronicity: acute DVT location: lower extremity Laterality: left Psychogenic nonepileptic seizure F44.5 Migraine without aura, not intractable, without status migrainosus G43.009 Hyperlipidemia E78.5 Depression F32.9 TIA (transient ischemic attack) G45.9 Morbid obesity with BMI of 45.0-49.9, adult E66.01; Z68.42 Hyponatremia E87.1 Snoring R06.83 DVT prophylaxis Z29.9
[2022-05-03] MEDS ORDERED: WARFARIN SOD 2 MG TAB PO SCH (16:00)
== END 2022-05-03 15:30 | disposition home or self-care (01) | DRG 602 ==
LOC: ED 16:32 → EDINP 20:57 → SUATTDRO 20:57 → 1E 04-29 06:33

== ENCOUNTER 2023-02-14 16:43 | Observation (INO) ==
--- NOTE | 2023-02-14 16:57 | Emergency Department Note ---
Impression & Plan Syncopal episodes, Pacemaker ED Provider Note NAME: DONNIE LUNDBERG AGE: 72 SEX: F : 1950 ARRIVES VIA: Ambulance INFORMANT: Patient ED PROVIDER(S): Benson Srinivasan DO CHIEF COMPLAINT: recurrent syncope HPI: Patient is a 72-year-old female who presents to the ER for recurrent syncopal events. Patient notes that she has been having syncope fairly daily but today she had developed 3 episodes. She has not fallen to the ground. She notes everything goes black and she can sometimes still hear people around her. Does have a seizure disorder as well. She notes when she wakes up she is not really confused. Denies any headache or change in vision. No chest pain or shortness of breath. No nausea, vomiting, or diarrhea. No dysuria, urgency, or frequency. No other exacerbating or remitting factors. This did happen at the PCPs office consequently was sent in. PAST MEDICAL HISTORY:See Below PAST SURGICAL HISTORY:See Below FAMILY HISTORY:See Below SOCIAL HISTORY:See Below HOME MEDICATIONS:See Below ALLERGIES:See Below VITALS:See Below PHYSICAL EXAMINATION: GENERAL: Sitting up in bed, alert, well appearing, well nourished, no distress, non-toxic EYE EXAM: normal conjunctiva. OROPHARYNX: no exudate, no erythema, lips, buccal mucosa, and tongue normal and mucous membranes are moist NECK: non-tender LUNGS: Clear to auscultation. Normal chest wall mechanics HEART: no murmurs, S1 normal and S2 normal ABDOMEN: abdomen soft, non-tender, normo-active bowel sounds, no masses, no rebound or guarding. UPPER EXTREMITIES: upper extremities are grossly normal. LOWER EXTREMITIES: No pitting edema. NEURO EXAM: Normal sensorium, cranial nerves II-XII grossly intact, normal speech, no gross weakness of arms, no gross weakness of legs. MEDICAL DECISION MAKING: patient is a 72-year-old female with past medical history of aortic stenosis, diastolic heart failure, moderate aortic insufficiency and moderate mitral stenosis with a dual-chamber pacemaker who presents the ER for recurrent syncope. External records reviewed. IV was established blood work was obtained. Labs show no significant leukocytosis or anemia. BMP with LFTs was fairly unremarkable. Troponin slightly elevated at 15.8. proBNP mildly elevated at 200. Lipase was elevated at 180. No abdominal pain on exam. Denies any belly pain nausea vomiting or diarrhea. COVID-negative. Chest x-ray with no focal infiltrate. Was updated at bedside. With these recurrent episodes of syncope versus seizure versus arrhythmia did discuss with the hospitalist for further evaluation management and treatment. Unable to interrogate pacer/ICD. Allegedly is [facility] and did contact as well. They note they got no transmissions. Triage Nursing notes reviewed. Limited review of prior medical records performed Vital Signs: reviewed and remarkable for no significant abnormalities Differential diagnosis: Infection, dehydration, metabolic abnormality, hypo/hyperglycemia, electrolyte disturbance, anemia, hypoxia, cardiac sources, intracerebral event, toxicologic, neurologic, as well as other pathologies. ER treatment provided: See below Diagnostics interpreted by me include EKG and cardiac monitoring as listed below: -Cardiac Monitoring: An order was placed for continuous cardiac monitoring. The monitor shows a rate of 60 with sinus rhythm. -ECG: Sinus rhythm rate of 63 Normal axis No PVCs QTc 476 -Laboratory studies:Interpreted by me as stated above in MDM and shown below. Imaging studies: Xrays: As interpreted by me: Portable AP upright 1 view of the chest shows no focal infiltrate CTs show: none Consultation(s): As described in MDM Procedures:none Critical Care: None Past Med/Surg History Medical History (Updated 02/14/23 @ 21:28 by Benson Srinivasan DO) Acute on chronic diastolic CHF (congestive heart failure) Anemia Anxiety Arrhythmia TACHYCARDIA Asthma stable Chronic back pain Deep vein thrombosis 2016 Depression Encounter for pre-operative examination n/a Endometriosis Hearing deficit History of deep vein thrombosis History of pulmonary embolism Hyperlipidemia Memory difficulties Migraine without aura, not intractable, without status migrainosus Osteoarthritis Peptic ulcer disease AT AGE 17 Psychogenic nonepileptic seizure Pulmonary embolism 2016 Seizure Per neurology 01/2018, episodes questionable seizure versus pseudoseizure activity (negative EEG). Thrombophlebitis TIA (transient ischemic attack) Transient ischemic attack (TIA) GREATER THAN 1 YEAR AGO Uterine cancer Surgical History (Updated 02/14/23 @ 21:28 by Benson Srinivasan DO) History of adenoidectomy History of cholecystectomy History of ear surgery RIGHT History of herniorrhaphy UMBILICAL History of tonsillectomy History of tooth extraction History of total abdominal hysterectomy and bilateral salpingo-oophorectomy Pacemaker SECONDARY TO SSS; PLACED 1993; REPLACEMENT 1999 Status post right knee replacement Social History Smoking Status: Unknown if ever smoked Second Hand Exposure: No; Hx Alcohol Use: No Hx Substance Use: No Preferred Language: Kazakh Communication Ability: Effective Visual Impairment: No Limitations Rn Oncology Research Required: No Beliefs That Will Affect Care: None marital status: / Current Living Situation: Alone How many Children do You have: 1 Feels Safe at Home: Yes Assistive Devices: Cane and Walker Allergies Allergies Allergy/AdvReac Type Severity Reaction Status Date / Time No Known Allergies Allergy Verified 02/14/23 20:36 Home Meds Home Medications Medication Instructions Recorded Confirmed sertraline 100 mg tablet (Zoloft) 200 mg PO QAM #0 tabs 07/09/19 02/14/23 atorvastatin 10 mg tablet 10 mg PO QAM 07/14/19 02/14/23 levothyroxine 75 mcg capsule 75 mcg PO DAILY 02/28/21 02/14/23 albuterol sulfate 90 mcg/actuation 2 puff inhalation Q4 PRN Wheezing 04/28/22 02/14/23 aerosol inhaler (Ventolin HFA) calcium carbonate 600 mg-vitamin 1 tab PO DAILY 04/28/22 02/14/23 D3 10 mcg (400 unit) tablet (Calcium 600 + D(3)) multivitamin-ferrous 1 tab PO DAILY 04/28/22 02/14/23 fumarate-folic acid 18 mg-400 mcg tablet (Complete Multivitamin-Multimineral) bumetanide 1 mg tablet 1 mg PO DAILY 11/22/22 02/14/23 spironolactone 25 mg tablet 12.5 mg PO DAILY 11/22/22 02/14/23 Previous Rx's Medication Instructions Recorded amlodipine 2.5 mg tablet 2.5 mg PO DAILY #30 tabs 05/03/22 warfarin 2 mg tablet See Rx Instructions PO UD #100 tabs 09/26/22 divalproex 250 mg tablet,extended 250 mg PO DAILY #90 tabs 12/30/22 release 24 hr sumatriptan succinate 25 mg tablet 25 mg PO .COMPLEX PRN migraine 12/30/22 headache #9 tabs Results & Data (ED) Vital Signs Vital Signs - 24 hr 02/14/23 16:59 02/14/23 16:52 02/14/23 17:35 Temperature 36.8 C Temperature Source Oral Pulse Rate 68 68 62 Pulse Rate [Apical] Pulse Rate from SpO2 Sensor Pulse Rhythm Regular Pulse Rhythm [Apical] Pulse Strength Normal Pulse Strength [Apical] Respiratory Rate 18 16 Respiratory Effort / Characteristics Non-Labored Spontaneous Respiratory Depth Normal Respiratory Pattern Blood Pressure 149/64 H Blood Pressure [Right Arm] Blood Pressure Mean 92 Blood Pressure Mean [Right Arm] Blood Pressure Position Lying Pulse Oximetry 96 90 Oxygen Delivery Method Room Air Room Air Sepsis Recent Fever Within 48 Hours No Sepsis New/Unexplained Change in Mental Status N/A Sepsis Action Taken by Nursing No Action Required 02/14/23 18:00 02/14/23 18:30 02/14/23 20:58 Temperature Temperature Source Pulse Rate 62 58 L Pulse Rate [Apical] 64 Pulse Rate from SpO2 Sensor 63 Pulse Rhythm Pulse Rhythm [Apical] Regular Pulse Strength Pulse Strength [Apical] Normal Respiratory Rate 16 17 Respiratory Effort / Characteristics Non-Labored Spontaneous Respiratory Depth Normal Respiratory Pattern Regular Blood Pressure 126/68 Blood Pressure [Right Arm] 130/60 Blood Pressure Mean 87 Blood Pressure Mean [Right Arm] 83 Blood Pressure Position Pulse Oximetry 91 97 Oxygen Delivery Method Room Air Sepsis Recent Fever Within 48 Hours Sepsis New/Unexplained Change in Mental Status Sepsis Action Taken by Nursing Laboratory Data 02/14/23 16:58 02/14/23 16:58 Lab Results 02/14/23 02/14/23 02/14/23 Range/Units 16:58 16:58 16:58 WBC 8.34 (4.8-10.8) K/ul RBC 4.82 (4.20-5.40) M/uL Hgb 12.4 (12.0-16.0) g/dl Hct 38.9 (37.0-47.0) % MCV 80.7 (80.0-100.0) fL MCH 25.7 (25.0-34.0) pg MCHC 31.9 L (32.0-36.0) g/dL RDW Std Deviation 48.9 H (36.4-46.3) fL RDW Coeff of Nick 16.7 H (11.5-14.5) % Plt Count 230 (130-400) K/uL MPV 10.7 (9.4-12.4) fL Immature Gran % (Auto) 0.4 % Neut % (Auto) 64.2 % Lymph % (Auto) 19.4 % Chambers % (Auto) 10.8 % Eos % (Auto) 4.4 % Baso % (Auto) 0.8 % Neut # (Auto) 5.35 (1.40-6.50) K/uL Lymph # (Auto) 1.62 (1.2-3.4) K/uL Chambers # (Auto) 0.90 H (0.11-0.59) K/uL Eos # (Auto) 0.37 (0-0.50) K/uL Baso # (Auto) 0.07 (0-0.2) K/uL Immature Gran # (Auto) 0.03 (0.01-0.20) K/uL Sodium 138 (136-145) mmol/L Potassium 3.9 (3.5-5.1) mmol/L Chloride 101 (98-107) mmol/L Carbon Dioxide 32 (21-32) mmol/L Anion Gap 5 (3-11) BUN 30 H (6-23) mg/dl Creatinine 0.97 (0.6-1.2) mg/dl Est Cr Clr Drug Dosing 58.8 ml/min Est GFR ( Amer) 68.6 ml/min Est GFR (Non-Af Amer) 59.2 ml/min BUN/Creatinine Ratio 30.9 H (10-20) Glucose 93 (70-99(Fasting)) mg/dl Calcium 9.3 (8.6-10.3) mg/dl Magnesium 1.9 (1.7-2.4) mg/dl Total Bilirubin 0.3 (0.2-1.0) mg/dl AST 19 (13-39) U/L ALT 12 (7-52) U/L Alkaline Phosphatase 80 (34-104) U/L Troponin I High Sens 15.8 H (0-14) pg/ml B-Natriuretic Peptide 216 H (0-100) pg/ml Total Protein 8.1 (6.0-8.3) gm/dl Albumin 4.0 (3.4-5.0) gm/dl Globulin 4.1 H (2.5-4.0) gm/dl Albumin/Globulin Ratio 1.0 (0.9-2) Lipase 184 H (11-82) U/L SARS-CoV-2, RNA, NAAT (NEGATIVE) 02/14/23 02/14/23 Range/Units 17:20 20:00 WBC (4.8-10.8) K/ul RBC (4.20-5.40) M/uL Hgb (12.0-16.0) g/dl Hct (37.0-47.0) % MCV (80.0-100.0) fL MCH (25.0-34.0) pg MCHC (32.0-36.0) g/dL RDW Std Deviation (36.4-46.3) fL RDW Coeff of Nick (11.5-14.5) % Plt Count (130-400) K/uL MPV (9.4-12.4) fL Immature Gran % (Auto) % Neut % (Auto) % Lymph % (Auto) % Chambers % (Auto) % Eos % (Auto) % Baso % (Auto) % Neut # (Auto) (1.40-6.50) K/uL Lymph # (Auto) (1.2-3.4) K/uL Chambers # (Auto) (0.11-0.59) K/uL Eos # (Auto) (0-0.50) K/uL Baso # (Auto) (0-0.2) K/uL Immature Gran # (Auto) (0.01-0.20) K/uL Sodium (136-145) mmol/L Potassium (3.5-5.1) mmol/L Chloride (98-107) mmol/L Carbon Dioxide (21-32) mmol/L Anion Gap (3-11) BUN (6-23) mg/dl Creatinine (0.6-1.2) mg/dl Est Cr Clr Drug Dosing ml/min Est GFR ( Amer) ml/min Est GFR (Non-Af Amer) ml/min BUN/Creatinine Ratio (10-20) Glucose (70-99(Fasting)) mg/dl Calcium (8.6-10.3) mg/dl Magnesium Cancelled (1.7-2.4) mg/dl Total Bilirubin (0.2-1.0) mg/dl AST (13-39) U/L ALT (7-52) U/L Alkaline Phosphatase (34-104) U/L Troponin I High Sens (0-14) pg/ml B-Natriuretic Peptide (0-100) pg/ml Total Protein (6.0-8.3) gm/dl Albumin (3.4-5.0) gm/dl Globulin (2.5-4.0) gm/dl Albumin/Globulin Ratio (0.9-2) Lipase (11-82) U/L SARS-CoV-2, RNA, NAAT NEGATIVE (NEGATIVE) Imaging Data Radiologist's Impression: Chest X-Ray 02/14/23 16:54 XR chest 1V portable CLINICAL HISTORY: Chest pain, nonspecific TECHNIQUE: Single frontal radiograph of the chest was obtained. Comparison: Comparison is made to chest radiograph 04/29/2022 FINDINGS: Exam is limited by underpenetration. Dual-lead pacemaker noted. Cardiomegaly is noted. The lungs are clear. No evidence of pleural effusion or pneumothorax. IMPRESSION: No acute chest disease. ACT 112: Negative or not required by law. Electronically signed by: Rafa Webster M.D. 02/14/2023 5:43 PM Discharge Plan Visit Data Chief Complaint: Syncope Stated Complaint: SYNCOPE, ?PSEUDOSEIZURES ED Provider: Benson Srinivasan Discharge Problem: Syncopal episodes, Pacemaker Forms Stand Alone Forms: My [facility] Prescriptions Prescriptions: No Action levothyroxine 75 mcg capsule 75 mcg PO DAILY warfarin 2 mg tablet See Rx Instructions PO UD Qty: 100 1RF Rx Instructions: 4mg q Th, 2mg x 6 days per [facility] PO use as directed; spironolactone 25 mg tablet 12.5 mg PO DAILY bumetanide 1 mg tablet 1 mg PO DAILY sertraline [Zoloft] 100 mg tablet 200 mg PO QAM Qty: 0 sumatriptan succinate 25 mg tablet 25 mg PO .COMPLEX PRN (Reason: migraine headache) Qty: 9 1RF Rx Instructions: 25 mg PO prn migraine, may repeat after two hours prn divalproex 250 mg tablet extended release 24 hr 250 mg PO DAILY Qty: 90 0RF atorvastatin 10 mg tablet 10 mg PO QAM albuterol sulfate [Ventolin HFA] 90 mcg/actuation HFA aerosol inhaler 2 puff INHALATION Q4 PRN (Reason: Wheezing) Complete Multivitamin-Mineral 18-400 mg-mcg Tablet 1 tab PO DAILY calcium carbonate-vitamin D3 [Calcium 600 + D(3)] 600 mg-10 mcg (400 unit) Tablet 1 tab PO DAILY amlodipine 2.5 mg tablet 2.5 mg PO DAILY Qty: 30 0RF Referrals Referrals: Giovanna Lopes CRNP [Primary Care Provider] -
[2023-02-14 17:17] LABS: Basophils # (auto) 0.07 K/uL (0-0.2); Basophils % (auto) 0.8 %; Eosinophils # (auto) 0.37 K/uL (0-0.50); Eosinophils % (auto) 4.4 %; Hematocrit (blood only) 38.9 % (37.0-47.0); Hemoglobin 12.4 g/dl (12.0-16.0); Immature Granulocytes # (auto) 0.03 K/uL (0.01-0.20); Immature Granulocytes % (auto) 0.4 %; Lymphocytes # (auto) 1.62 K/uL (1.2-3.4); Lymphocytes % (auto) 19.4 %; Mean Corpuscular Hemoglobin 25.7 pg (25.0-34.0); Mean Corpuscular Hgb Conc 31.9 g/dL (32.0-36.0); Mean Corpuscular Volume 80.7 fL (80.0-100.0); Mean Platelet Volume 10.7 fL (9.4-12.4); Monocytes % (auto) 10.8 %; Neutrophils # (auto) 5.35 K/uL (1.40-6.50); Neutrophils % (auto) 64.2 %; Platelet Count 230 K/uL (130-400); RDW Coefficient of Variation 16.7 % (11.5-14.5); RDW Standard Deviation 48.9 fL (36.4-46.3); Red Blood Count 4.82 M/uL (4.20-5.40); White Blood Count 8.34 K/ul (4.8-10.8)
[2023-02-14 17:33] LABS: BUN Creatinine Ratio 30.9 (10-20); Bilirubin,Total 0.3 mg/dl (0.2-1.0); Calcium 9.3 mg/dl (8.6-10.3); Creatinine Clr Calc Pharmacy 58.8 ml/min; Est GFR (African American) 68.6 ml/min; Est GFR (Non-African American) 59.2 ml/min; Globulin 4.1 gm/dl (2.5-4.0); Potassium 3.9 mmol/L (3.5-5.1); Total Protein 8.1 gm/dl (6.0-8.3)
[2023-02-14 17:40] LABS: Troponin I High Sensitivity 15.8 pg/ml (0-14)
--- NOTE | 2023-02-14 17:44 | XRay Report ---
XR chest 1V portable CLINICAL HISTORY: Chest pain, nonspecific TECHNIQUE: Single frontal radiograph of the chest was obtained. Comparison: Comparison is made to chest radiograph 04/29/2022 FINDINGS: Exam is limited by underpenetration. Dual-lead pacemaker noted. Cardiomegaly is noted. The lungs are clear. No evidence of pleural effusion or pneumothorax. IMPRESSION: No acute chest disease. ACT 112: Negative or not required by law. Electronically signed by: Rafa Webster M.D. 02/14/2023 5:43 PM
--- NOTE | 2023-02-14 19:48 | History & Physical Report ---
Date of Service February 14, 2023 Assessment & Plan (1) Syncopal episodes: Plan: Celestina Ferreira is a 72-year-old female with past medical history of diastolic heart failure, moderate aortic stenosis, moderate aortic insufficiency, moderate mitral stenosis, dual-chamber pacemaker due to sick sinus syndrome, history of PE and DVT on warfarin, hyperlipidemia, history of TIA, history of seizure versus PNES who presented to ED referred by cardiology office due to syncope. Syncope Per patient description seems these episodes may be vasovagal in nature However, would consider pacemaker interrogation Unable to be done in ED patient has a [facility] [place] XL DR device Will consult cardiology for further recommendations Echocardiogram ordered, as updated echo was recommended by cardiology at office visit per note Admit to telemetry for cardiac monitoring Heart failure/aortic stenosis/mitral stenosis/hyperlipidemia/hypertension Continue home amlodipine, atorvastatin, bumetanide, spironolactone Seizure versus PNES Continue home Depakote Check Depakote level in a.m. Hypothyroidism Continue home levothyroxine Depression/anxiety Continue home sertraline History of DVT/PE Continue home warfarin schedule Check PT/INR DVT prophylaxis: On warfarin Diet: Heart healthy, low-sodium Dispo: Admit to telemetry monitored bed CODE STATUS: Full, discussed with patient (2) Valvular heart disease: (3) Deep vein thrombosis: (4) Current use of supervisor intermediates anticoagulation: (5) Anxiety: (6) Hyperlipidemia: (7) Seizure: (8) Depression: (9) Pacemaker: History of Present Illness Primary Care Provider: CATERINA Hicks Celestina Ferreira is a 72-year-old female with past medical history of diastolic heart failure, moderate aortic stenosis, moderate aortic insufficiency, moderate mitral stenosis, dual-chamber pacemaker due to sick sinus syndrome, history of PE and DVT on warfarin, hyperlipidemia, history of TIA, history of nonepileptic psychogenic seizure who presented to ED referred by cardiology office due to syncope. Patient and her daughter state that these syncopal episodes have been going on for up to 20 years. Daughter states that around time when these began was 1 the patient's pacemaker was placed. She also reports that she was started on Depakote due to ongoing syncopal episodes with some shaking/thrashing movements at times. They both agree that more recently she has not had any shaking or thrashing and that she is always immediately aware once she comes to. They deny postictal period. Patient states that during these episodes everything goes black and she can sometimes still hear what is going on around her. Denies falling to the ground or head trauma. Daughter states that they have noticed that they seem to come on whenever she is hot, in pain, upset, or if she stands up too quick. Earlier today, patient was at a cardiology appointment and was noted to have 3 separate syncopal episodes. She was advised to present to the emergency department for further evaluation. At this time, patient denies chest pain, palpitations, nausea, vomiting, shortness of breath, fever, chills, headache, dizziness, weakness, numbness, abdominal pain, dysuria, frequency, urgency. Allergies Allergy/AdvReac Type Severity Reaction Status Date / Time No Known Allergies Allergy Verified 02/14/23 20:36 Home Medications Medication Instructions Recorded Confirmed Type sertraline 100 mg tablet (Zoloft) 200 mg PO QAM #0 tabs 07/09/19 02/14/23 History atorvastatin 10 mg tablet 10 mg PO QAM 07/14/19 02/14/23 History levothyroxine 75 mcg capsule 75 mcg PO DAILY 02/28/21 02/14/23 History albuterol sulfate 90 mcg/actuation 2 puff inhalation Q4 PRN Wheezing 04/28/22 02/14/23 History aerosol inhaler (Ventolin HFA) calcium carbonate 600 mg-vitamin 1 tab PO DAILY 04/28/22 02/14/23 History D3 10 mcg (400 unit) tablet (Calcium 600 + D(3)) multivitamin-ferrous 1 tab PO DAILY 04/28/22 02/14/23 History fumarate-folic acid 18 mg-400 mcg tablet (Complete Multivitamin-Multimineral) amlodipine 2.5 mg tablet 2.5 mg PO DAILY #30 tabs 05/03/22 02/14/23 Rx warfarin 2 mg tablet See Rx Instructions PO UD #100 tabs 09/26/22 02/14/23 Rx bumetanide 1 mg tablet 1 mg PO DAILY 11/22/22 02/14/23 History spironolactone 25 mg tablet 12.5 mg PO DAILY 11/22/22 02/14/23 History divalproex 250 mg tablet,extended 250 mg PO DAILY #90 tabs 12/30/22 02/14/23 Rx release 24 hr sumatriptan succinate 25 mg tablet 25 mg PO .COMPLEX PRN migraine 12/30/22 02/14/23 Rx headache #9 tabs Past Med/Surg History Medical History Acute on chronic diastolic CHF (congestive heart failure) Anemia Anxiety Arrhythmia TACHYCARDIA Asthma stable Chronic back pain Deep vein thrombosis 2016 Depression Encounter for pre-operative examination n/a Endometriosis Hallucinations Hearing deficit History of deep vein thrombosis History of pulmonary embolism Hyperlipidemia Insomnia Memory difficulties Memory loss Migraine without aura, not intractable, without status migrainosus Osteoarthritis Osteoporosis Peptic ulcer disease AT AGE 17 Psychogenic nonepileptic seizure Pulmonary embolism 2016 Seizure Per neurology 01/2018, episodes questionable seizure versus pseudoseizure activity (negative EEG). Seizure-like activity Thrombophlebitis TIA (transient ischemic attack) Transient ischemic attack (TIA) GREATER THAN 1 YEAR AGO Uterine cancer Surgical History History of adenoidectomy History of cholecystectomy History of ear surgery RIGHT History of herniorrhaphy UMBILICAL History of tonsillectomy History of tooth extraction History of total abdominal hysterectomy and bilateral salpingo-oophorectomy Pacemaker SECONDARY TO SSS; PLACED 1993; REPLACEMENT 1999 Status post right knee replacement Social History Smoking Status: Former smoker Second Hand Exposure: No; Hx Alcohol Use: No Hx Substance Use: No Preferred Language: Hungarian Communication Ability: Effective Visual Impairment: No Limitations Land Inspector Required: No Beliefs That Will Affect Care: None marital status: / Current Living Situation: Alone How many Children do You have: 1 Feels Safe at Home: Yes Assistive Devices: Glasses, Hearing Aid - Right and Walker Review of Systems Review of Systems: Per HPI Physical Exam Physical Exam: GENERAL: A&Ox3. NAD. HEENT: PERRL, EOMI. Moist mucous membranes. NECK: No JVD. No lymphadenopathy. CHEST/LUNGS: CTAB A/P. No crackles, wheezes, rales, rhonchi. HEART: RRR. No m/g/r. No carotid bruits. ABDOMEN: NT/ND, soft. BS+ x4 EXTREMITIES: No cyanosis, no clubbing, no edema SKIN: Warm and dry. No rashes or lesions. PSYCHIATRIC: Euthymic affect, no SI, no pressured speech, no hallucinations NEUROLOGIC: No FND. CN II-XII grossly intact. Results & Data Results & Data Vital Signs (Past 12 Hours) Vital Signs Temp Pulse Pulse Resp BP BP Pulse Ox 02/14/23 18:00 64 16 130/60 91 02/14/23 17:35 62 16 90 02/14/23 16:52 68 02/14/23 16:59 36.8 C 68 18 149/64 H 96 O2 Del Method 02/14/23 18:00 Room Air 02/14/23 17:35 Room Air 02/14/23 16:52 02/14/23 16:59 Room Air Supervising Physician Co-Signing Physician Notes Attending addendum: I have physically seen this patient, have supervised the medical residents activities, and agree with the H&P unless as otherwise noted. Assessment and Plan: Syncope/CHF/aortic stenosis/mitral stenosis/hypertension- Unable to interrogate pacemaker in the outpatient setting, so was referred into the hospital for further evaluation The patient will be admitted to telemetry for serial cardiac enzymes, serial EKG's, cardiac rhythm monitoring and a 2-D echocardiogram with Dopplers. Continue amlodipine, bumetanide and spironolactone Consult cardiology Seizure disorder- Continue Depakote and check level Hypothyroidism- Continue levothyroxine Depression with anxiety- Continue sertraline History of DVT/PE- Continue warfarin and follow serial PT/INR Remaining orders and notations as noted Resident Activity Tracking Resident Involvement: Resident Care Provided Care Provided: Adult Hospital Medicine (3) Deep vein thrombosis Affected thrombotic vein of extremity: popliteal Chronicity: acute DVT location: lower extremity Laterality: left Qualified Code(s): I82.432 - Acute embolism and thrombosis of left popliteal vein
[2023-02-14 20:21] LABS: Magnesium 1.9 mg/dl (1.7-2.4)
[2023-02-14] MEDS ORDERED: SUMAtriptan succinate 25 MG TAB PO PRN (22:04)
[2023-02-14] MEDS ORDERED: ACETAMINOPHEN 325 MG TAB PO PRN (22:04)
[2023-02-14] MEDS ORDERED: POLYETHYLENE (MIRALAX) 17 GM PACK PO PRN (22:04)
[2023-02-14] MEDS ORDERED: ONDANSETRON INJ 2 MG/ML 2 ML VIAL IV PRN (22:04)
[2023-02-14] MEDS ORDERED: ALBUTEROL HFA 8 GM INHALER INH PRN (22:04)
[2023-02-14 22:25] LABS: INR 2.4 (0.9-1.1); Prothrombin Time 24.8 Seconds (9.0-12.0)
[2023-02-14] MEDS ORDERED: WARFARIN SOD 2 MG TAB PO SCH (23:00)
[2023-02-15] MEDS ORDERED: LEVOTHYROXINE SODIUM 75 MCG TABLET PO SCH (06:30)
[2023-02-15 07:35] LABS: Basophils # (auto) 0.06 K/uL (0-0.2); Basophils % (auto) 0.8 %; Eosinophils # (auto) 0.28 K/uL (0-0.50); Eosinophils % (auto) 3.9 %; Hematocrit (blood only) 35.9 % (37.0-47.0); Hemoglobin 11.4 g/dl (12.0-16.0); Immature Granulocytes # (auto) 0.03 K/uL (0.01-0.20); Immature Granulocytes % (auto) 0.4 %; Lymphocytes # (auto) 1.08 K/uL (1.2-3.4); Mean Corpuscular Hgb Conc 31.8 g/dL (32.0-36.0); Mean Corpuscular Volume 81.8 fL (80.0-100.0); Mean Platelet Volume 10.7 fL (9.4-12.4); Monocytes # (auto) 0.77 K/uL (0.11-0.59); Monocytes % (auto) 10.7 %; Neutrophils # (auto) 4.96 K/uL (1.40-6.50); Neutrophils % (auto) 69.2 %; Platelet Count 208 K/uL (130-400); RDW Coefficient of Variation 16.7 % (11.5-14.5); RDW Standard Deviation 49.7 fL (36.4-46.3); Red Blood Count 4.39 M/uL (4.20-5.40); White Blood Count 7.18 K/ul (4.8-10.8)
[2023-02-15 07:51] LABS: Albumin Globulin Ratio 1.1 (0.9-2); Albumin Level 3.6 gm/dl (3.4-5.0); BUN Creatinine Ratio 29.6 (10-20); Bilirubin,Total 0.4 mg/dl (0.2-1.0); Calcium 8.6 mg/dl (8.6-10.3); Creatinine Clr Calc Pharmacy 70.2 ml/min; Est GFR (African American) 85.3 ml/min; Est GFR (Non-African American) 73.6 ml/min; Globulin 3.3 gm/dl (2.5-4.0); Potassium 3.8 mmol/L (3.5-5.1); Total Protein 6.9 gm/dl (6.0-8.3)
[2023-02-15 08:11] LABS: INR 2.5 (0.9-1.1); Prothrombin Time 25.8 Seconds (9.0-12.0)
--- NOTE | 2023-02-15 08:34 | Electrocardiogram Report ---
Test Reason : Blood Pressure : / mmHG Vent. Rate : 063 BPM Atrial Rate : 063 BPM P-R Int : 228 ms QRS Dur : 096 ms QT Int : 466 ms P-R-T Axes : 060 050 090 degrees QTc Int : 476 ms Sinus rhythm with 1st degree A-V block Otherwise normal ECG When compared with ECG of 29-APR-2022 08:02, No significant change was found Confirmed by Louie Ruiz ([id number]) on 02/15/2023 8:34:20 AM Referred By: REFERRED SELF Confirmed By:Louie Ruiz
[2023-02-15] MEDS ORDERED: CEROVITE ADV FORMULA TAB PO SCH (09:00)
[2023-02-15] MEDS ORDERED: CALCIUM 600MG + VIT D 400 IU TAB PO SCH (09:00)
[2023-02-15] MEDS ORDERED: amLODIPine BESYLATE 5 MG TAB PO SCH (09:00)
[2023-02-15] MEDS ORDERED: SPIRONOLACTONE 12.5 MG TAB PO SCH (09:00)
[2023-02-15] MEDS ORDERED: SERTRALINE HCL 100 MG TABLET PO SCH (09:00)
[2023-02-15] MEDS ORDERED: ATORVASTATIN 10 MG TAB PO SCH (09:00)
[2023-02-15] MEDS ORDERED: DIVALPROEX EXTENDED RELEASE 250 MG TABCR PO SCH (09:00)
[2023-02-15] MEDS ORDERED: BUMETANIDE 1 MG TAB PO SCH (09:00)
--- NOTE | 2023-02-15 10:22 | XCELERA ---
[id number]
--- NOTE | 2023-02-15 11:40 | Cardiology Consultation ---
Date of Consultation February 15, 2023 Assessment & Plan (1) Episodic altered awareness: (2) Pacemaker: (3) Moderate mitral stenosis: (4) Moderate to severe aortic stenosis: (5) Moderate aortic insufficiency: (6) Moderate mitral regurgitation: Plan 72-year-old woman with significant valvular heart disease, prior HFpEF, dual- chamber cardiac pacemaker ([employer] [place] YOHANA FISCHER), and recurrent episodes of altered awareness who presented yesterday with one of her "usual" episodes. In my experience, her description of the episodes is not suggestive of presyncope or syncope, in that there is an extended period of unresponsiveness and apparent visual blackout but no loss of consciousness, since she continues to hear ambient conversations. Since this was a typical episode for her, and since there is no evidence of dysrhythmia on overnight monitoring, she has no symptoms to suggest heart failure or infarct, and her current rhythm is sinus at an appropriate rate, feel that pacemaker interrogation would add little. Importantly, since this is a [employer] pacemaker, it would be quite difficult to obtain urgent interrogation via their advertising account representative currently, moreover I don't believe that this would be relevant. Certainly, during a routine interrogation a notation of the timing of this latest event could be made and confirmation that no dysrhythmia occurred could take place at that time. She is anxious to return home, from a cardiac standpoint I do not believe there is a contraindication. History of Present Illness Reason for Consultation: syncope, pacemaker in place Requesting Physician: Benson Raygoza DO Attending Physician: Benson Raygoza DO History of Present Illness 72-year-old woman with valvular heart disease (current echo with moderate to severe /moderate AI/moderate MS/indeterminate MR), dual-chamber pacemaker (1993 for sinus node dysfunction, generator changes 1999 and 2010), pulmonary embolism (chronic warfarin), HFpEF (furosemide 40 mg daily, last hospitalized April 2022), and a history of longstanding recurrent episodes of altered awareness (not clearly syncope, felt to be seizure versus psychogenic nonepileptic seizures) who was admitted after one of her "usual" episodes of altered awareness yesterday. She has been having these episodes for several decades, a pacemaker was placed in hopes they would diminish but there was no change. She is on chronic Depakote for the possibility they represent a form of seizure. These episodes can occur at any time and are not positional or exertional, occurring sometimes even when she is in bed. As has happened in the past, she does not actually lose consciousness but she becomes unresponsive to those around her, she notes that she can still hear the television and people talking around her. No loss of bowel or bladder discomfort. No post event confusion. Yesterday, she noted that "everything went black" for a period of minutes, but as noted she could still hear people around her. She denied any prior or subsequent chest discomfort, abdominal pain, palpitations, or any other prodromal or subsequent symptoms. At the time of my evaluation this morning, she felt well and was anxious to return home. Telemetry overnight showed sinus rhythm in the 60-70 bpm range without ectopy or dysrhythmia. She is routinely followed as an outpatient by Dr. Weston Tariq from a cardiology standpoint. Allergies Allergy/AdvReac Type Severity Reaction Status Date / Time No Known Allergies Allergy Verified 02/14/23 20:36 Home Medications Medication Instructions Recorded Confirmed Type sertraline 100 mg tablet (Zoloft) 200 mg PO QAM #0 tabs 07/09/19 02/14/23 History atorvastatin 10 mg tablet 10 mg PO QAM 07/14/19 02/14/23 History levothyroxine 75 mcg capsule 75 mcg PO DAILY 02/28/21 02/14/23 History albuterol sulfate 90 mcg/actuation 2 puff inhalation Q4 PRN Wheezing 04/28/22 02/14/23 History aerosol inhaler (Ventolin HFA) calcium carbonate 600 mg-vitamin 1 tab PO DAILY 04/28/22 02/14/23 History D3 10 mcg (400 unit) tablet (Calcium 600 + D(3)) multivitamin-ferrous 1 tab PO DAILY 04/28/22 02/14/23 History fumarate-folic acid 18 mg-400 mcg tablet (Complete Multivitamin-Multimineral) amlodipine 2.5 mg tablet 2.5 mg PO DAILY #30 tabs 05/03/22 02/14/23 Rx warfarin 2 mg tablet See Rx Instructions PO UD #100 tabs 09/26/22 02/14/23 Rx bumetanide 1 mg tablet 1 mg PO DAILY 11/22/22 02/14/23 History spironolactone 25 mg tablet 12.5 mg PO DAILY 11/22/22 02/14/23 History divalproex 250 mg tablet,extended 250 mg PO DAILY #90 tabs 12/30/22 02/14/23 Rx release 24 hr sumatriptan succinate 25 mg tablet 25 mg PO .COMPLEX PRN migraine 12/30/22 02/14/23 Rx headache #9 tabs Patient History Medical History Acute on chronic diastolic CHF (congestive heart failure) Anemia Anxiety Arrhythmia TACHYCARDIA Asthma stable Chronic back pain Deep vein thrombosis 2016 Depression Encounter for pre-operative examination n/a Endometriosis Hallucinations Hearing deficit History of deep vein thrombosis History of pulmonary embolism Hyperlipidemia Insomnia Memory difficulties Memory loss Migraine without aura, not intractable, without status migrainosus Osteoarthritis Osteoporosis Peptic ulcer disease AT AGE 17 Psychogenic nonepileptic seizure Pulmonary embolism 2016 Seizure Per neurology 01/2018, episodes questionable seizure versus pseudoseizure activity (negative EEG). Seizure-like activity Thrombophlebitis TIA (transient ischemic attack) Transient ischemic attack (TIA) GREATER THAN 1 YEAR AGO Uterine cancer Surgical History History of adenoidectomy History of cholecystectomy History of ear surgery RIGHT History of herniorrhaphy UMBILICAL History of tonsillectomy History of tooth extraction History of total abdominal hysterectomy and bilateral salpingo-oophorectomy Pacemaker SECONDARY TO SSS; PLACED 1993; REPLACEMENT 1999 Status post right knee replacement Social History Smoking Status: Former smoker Smoking End Date: 2004; Second Hand Exposure: No; Hx Alcohol Use: No Hx Substance Use: No Preferred Language: Bhutanese Communication Ability: Effective Visual Impairment: No Limitations Patent Legal Assistant Required: No Beliefs That Will Affect Care: None marital status: / Current Living Situation: Alone How many Children do You have: 1 Other Information That Helps Us Care for You: No Feels Safe at Home: Yes Safety Concerns: Feels Safe At This Time Assistive Devices: Glasses, Hearing Aid - Right and Walker Physical Exam Physical Exam: Appears comfortable, watching television. Normotensive. Pulse 68 bpm and regular without ectopy. Skin: no ecchymoses or generalized lesions. HEENT: unremarkable. Neck: Jugular venous pulse at the clavicle at 90 degrees, bilateral transmitted murmur to the carotids. Lungs: Mildly decreased breath sounds bilaterally but clear. Cardiac: regular rhythm, increased S1, audible but markedly diminished aortic closure sound, 3/6 crescendo decrescendo systolic murmur right upper sternal border rating to the carotids and apex, no obvious diastolic murmur (despite known AI/MS). Abdomen: benign. Extremities: 1+ edema left leg, trace right leg, posterior tibial pulses intact. Neurologic: normal affect and conversation, nonfocal. Results & Data Vital Signs (Past 12 Hours) Vital Signs Temp Pulse Resp BP Pulse Ox O2 Del Method O2 Flow Rate 02/15/23 07:33 97.9 F 61 18 132/74 97 Nasal Cannula 1.0 02/15/23 02:39 98.1 F 58 L 18 132/76 94 Nasal Cannula Diagnostic Findings ECG showed sinus rhythm with first-degree AV block at 63 bpm. Compared with 04/29/2022 ECG, no change. Echocardiogram showed EF 55 to 60% with moderate LVH, moderate to severe aortic stenosis, moderate aortic regurgitation, moderate mitral stenosis, indeterminant mitral regurgitation. Chest x-ray showed acute disease. PG Care Time/CCT Total # of Minutes Spent Total Time Spent with Patient: Total time spent is greater than 50% in coordination of care (as documented) at patient's floor/unit and/or counseling patient: Coding Level of Care Code 66299 INT INP/OBS CARE 3/75MIN Diagnoses Episodic altered awareness R40.4 Pacemaker Z95.0 Moderate mitral stenosis I05.0 Moderate to severe aortic stenosis I35.0 Moderate aortic insufficiency I35.1 Moderate mitral regurgitation I34.0
--- NOTE | 2023-02-15 17:49 | Discharge Summary ---
Date of Service February 15, 2023 Admission HPI Per Admitting Provider Celestina Ferreira is a 72-year-old female with past medical history of diastolic heart failure, moderate aortic stenosis, moderate aortic insufficiency, moderate mitral stenosis, dual-chamber pacemaker due to sick sinus syndrome, history of PE and DVT on warfarin, hyperlipidemia, history of TIA, history of nonepileptic psychogenic seizure who presented to ED referred by cardiology office due to syncope. Patient and her daughter state that these syncopal episodes have been going on for up to 20 years. Daughter states that around time when these began was 1 the patient's pacemaker was placed. She also reports that she was started on Depakote due to ongoing syncopal episodes with some shaking/thrashing movements at times. They both agree that more recently she has not had any shaking or thrashing and that she is always immediately aware once she comes to. They deny postictal period. Patient states that during these episodes everything goes black and she can sometimes still hear what is going on around her. Denies falling to the ground or head trauma. Daughter states that they have noticed that they seem to come on whenever she is hot, in pain, upset, or if she stands up too quick. Earlier today, patient was at a cardiology appointment and was noted to have 3 separate syncopal episodes. She was advised to present to the emergency department for further evaluation. At this time, patient denies chest pain, palpitations, nausea, vomiting, shortness of breath, fever, chills, headache, dizziness, weakness, numbness, abdominal pain, dysuria, frequency, urgency. Principal Diagnosis syncope/near syncope Discharge Exam gen aaox3 pleasant nad heent nc at mmm breathing unlabored no accessory muscles good effort skin no rashes no pallor or icterus neuro no focal deficits. d/w cardiology. echo reviewed. labs noted Discharge Data Allergies Allergy/AdvReac Type Severity Reaction Status Date / Time No Known Allergies Allergy Verified 02/14/23 20:36 Consultations 02/14/23 19:16 ED Decision to Admit Stat 02/14/23 22:04 Consult Cardiology Routine Hospital Course (1) Syncopal episodes: safe/stable for home - nothing acute. outpt w/u and management. ?POTS physiology vs PNES vs elements of both? PCP and cardiology f/u Total Time Total Time Spent Total Time Spent (In Minutes): <30 Discharge Plan Discharge Items Patient Disposition: Home - Self-Care Reason For Visit: SYNCOPE Discharge Diagnosis: syncope - for outpatient follow up Activity: Resume your previous activity Non-emergency contact: Primary Care Provider and Grocery Bagger Call non-emergency contact if: you have any medication questions Follow-up/Referrals: Giovanna Lopes CRNP [Primary Care Provider] - Diet: Regular Addtl Attending Provider Instructions: we will be working on getting you in specifically with Dr Tariq - he's often got some very good ideas on how to better define and/or manage situations like what you're going through Pending Studies at Discharge: No Stand-Alone Forms: My [employer]act Particle Acceleration, Smoking Cessation Medications and DC Order Prescriptions: Continued levothyroxine 75 mcg capsule 75 mcg PO DAILY warfarin 2 mg tablet See Rx Instructions PO UD Qty: 100 1RF Rx Instructions: 4mg q Th, 2mg x 6 days per [facility] PO use as directed; spironolactone 25 mg tablet 12.5 mg PO DAILY bumetanide 1 mg tablet 1 mg PO DAILY sertraline [Zoloft] 100 mg tablet 200 mg PO QAM Qty: 0 sumatriptan succinate 25 mg tablet 25 mg PO .COMPLEX PRN (Reason: migraine headache) Qty: 9 1RF Rx Instructions: 25 mg PO prn migraine, may repeat after two hours prn divalproex 250 mg tablet extended release 24 hr 250 mg PO DAILY Qty: 90 0RF atorvastatin 10 mg tablet 10 mg PO QAM albuterol sulfate [Ventolin HFA] 90 mcg/actuation HFA aerosol inhaler 2 puff INHALATION Q4 PRN (Reason: Wheezing) Complete Multivitamin-Mineral 18-400 mg-mcg Tablet 1 tab PO DAILY calcium carbonate-vitamin D3 [Calcium 600 + D(3)] 600 mg-10 mcg (400 unit) Tablet 1 tab PO DAILY amlodipine 2.5 mg tablet 2.5 mg PO DAILY Qty: 30 0RF Discharge Orders: Discharge Order (Routine); Ordered 02/15/23 Ordered By: Benson Raygoza Admission Data Admit Date/Time: 02/14/23 20:18 Attending Provider: Benson Raygoza Admit Provider: Michael Ortega Primary Care Provider: Giovanna Lopes Other Providers: Kamari Wooten ; Louie Ruiz ; Chey Stiles Other Interventions: Discharge Summary Assessment (RN) Last Done: 02/15/23 14:21 Coding Level of Care Code 52068 IN/OBS DISCH 30 MIN/LESS Diagnoses Syncopal episodes R55
--- NOTE | 2023-02-15 17:49 | Billing Data ---
Date of Service February 15, 2023 Coding Level of Care Code 06882 IN/OBS DISCH 30 MIN/LESS
--- NOTE | 2023-02-15 21:44 | Billing Data ---
Date of Service February 15, 2023 Coding Level of Care Code 82686 INT INP/OBS CARE
[2023-02-20] MEDS ORDERED: WARFARIN SOD 4 MG TAB PO SCH (16:00)
== END 2023-02-15 16:39 | disposition home or self-care (01) ==
LOC: ED 16:43 → 2S 16:43 → SUATTDRO 20:18 → 2S 21:37